=== PATIENT | male | born 1960 | race Caucasian/White ===

== ENCOUNTER 2021-08-07 07:26 | Outpatient (CLI) | payer BC, SELFPAY ==
[2021-08-07 07:49] LABS: Basophils Absolute Auto 0.1 K/mm3 (0.0-0.1); Basophils Percent Auto 1.4 % (0.2-1.2); Eosinophils Absolute Auto 0.1 K/mm3 (0-0.3); Eosinophils Percent Auto 3.1 % (0-4.4); Hematocrit 43.9 % (42.0-52.0); Hemoglobin 14.7 g/dL (14.0-18.0); Immature Granulocyte Absolute 0.01 K/mm3 (0.00-0.031); Immature Granulocyte Percent A 0.3 % (0-0.5); Lymphocytes Absolute Auto 0.56 K/mm3 (0.9-3.2); Lymphocytes Percent Auto 15.8 % (18.3-44.2); Mean Corpuscular HGB Conc 33.5 g/dl (32-36); Mean Corpuscular Hemoglobin 31.7 pg (26-34); Mean Corpuscular Volume 94.8 fl (80-100); Mean Platelet Volume 9.9 fl (7.4-10.4); Monocytes Absolute Auto 0.5 K/mm3 (0.1-0.6); Monocytes Percent Auto 14.4 % (2.6-8.5); Neutrophils Absolute Auto 2.3 K/mm3 (1.3-6.7); Platelet Count Result 215 k/mm3 (150-375); Red Blood Count 4.63 M/mm3 (4.6-6.20); Red Cell Distribution Width 12.9 % (11.5-14.5); White Blood Count 3.5 K/mm3 (4.5-10.0)
== END 2021-08-07 07:27 | disposition home or self-care (01) ==
LOC: ANHLAB 07:28
PROVIDERS: PCP Internal Medicine; Visit Provider Internal Medicine
DX: R79.89 Other specified abnormal findings of blood chemistry (principal)
CPT/HCPCS: 36415; 85025

== ENCOUNTER 2024-07-15 16:24 | Emergency (ER) | payer OTHER, SELFPAY ==
[2024-07-15] VITALS (9 sets, daily range): BP systolic 126–152; BP diastolic 73–87; PULSE 68–81; RESP 16–22; TEMP 36.6; O2SAT 88–100
--- NOTE | ~2024-07-15 | XR_ITS ---
EXAMINATION: XR chest 2V DATE: 07/15/2024 16:42 INDICATION: Chest pain. TECHNIQUE: Frontal and lateral views of the chest were obtained on 3 radiographs. COMPARISON: None. FINDINGS: There are lucencies and diffuse interstitial opacities in the lungs with architectural dist ortion. There is mild scarring at right lung apex. No pleural effusion or pneumothorax. Cardiomegaly is noted. IMPRESSION: 1. Emphysema. 2. Interstitial opacities in the lungs, consistent with mild pulmonary edema and/or chronic lung dise ase. 3. Cardiomegaly. Reviewed, dictated and finalized at location A. L [facility]ONDER IMPRESSION: 1. Emphysema. 2. Interstitial opacities in the lungs, consistent with mild pulmonary edema an d/or chronic lung disease. 3. Cardiomegaly.
--- NOTE | 2024-07-15 16:26 | ECG_ITS ---
Test Date: 2024-07-15 16:31:33 Measurements Intervals [place] Rate: 73 P: 93 SC: 195 QRS: 76 QRSD: 91 T: 94 QT: 380 QTc: 419 Interpretive Statements SINUS RHYTHM LEFT ATRIAL ENLARGEMENT [ INCOMPLETE RIGHT BUNDLE BRANCH BLOCK LEFT VENTRICULAR HYPERTROPHY MINIMAL Q WAVES- LATERAL LEADS T WAVE ABNORMALITY IN ANTERIOR LEADS- CONSIDER ISCHEMIA BASELINE ARTIFACT- I, II, III, AVR, AVL, AVF, V1-V6 ABNORMAL ECG No previous ECG available for comparison Electronically Signed On 07-15-2024 16:41:13 [employer] by Carl Rosa D.O.
--- NOTE | 2024-07-15 16:36 | ED_ITS ---
HPI - Chest Pain General Chief Complaint: Chest Pain <Britney Marsh PA-C - Last Filed: 07/15/24 16:51> Stated Complaint: chest pain <Britney Marsh PA-C - Last Filed: 07/15/24 16:51> Time Seen by Provider: 07/15/24 23:12 <Britney Marsh PA-C - Last Filed: 07/15/24 16:51> Focused HPI: 64-year-old male with history of hypertension presents to the emergency department with with a bedside for intermittent chest pain for the past 3 days. Patient states the chest pain is located in his anterior chest wall and is not radiating. He cannot identify any aggravating or alleviating factors. He states the pain lasts for few seconds at a time and then self resolves. He is unable to describe the pain. He reports intermittent shortness of breath and a cough that is unchanged from his baseline. Admits to smoking half pack per day for several years. Denies hemoptysis, fever, abdominal pain, lower extremity edema, history of VTE, recent surgeries or hospitalizations. GENERAL: Well-appearing, well-nourished, and in no acute distress. HEAD: Normocephalic, atraumatic. CHEST: Clear to auscultation. ?No respiratory distress. HEART: Regular rate and rhythm.? NEURO: ?Alert and oriented x3. Patient screened in triage and initial orders placed.? ?Additional care and disposition to be based upon?diagnostic testing and treatment. <Britney Marsh PA-C - Last Filed: 07/15/24 16:51> History of Present Illness HPI narrative: Agree with the HPI as described above. <Handy Smith MD - Last Filed: 07/16/24 01:48> Related Data Home Medications: Home Medications ?Medication ?Instructions ?Recorded ?Confirmed ?Last Taken ?Type loratadine 10 mg tablet (Claritin) 10 mg PO DAILY PRN 02/28/23 07/15/24 Unknown History <Britney Marsh PA-C - Last Filed: 07/15/24 16:51> Allergies/Adverse Reactions: Allergies Allergy/AdvReac Type Severity Reaction Status Date / Time No Known Allergies Allergy Unverified 07/15/24 15:02 <Britney Marsh PA-C - Last Filed: 07/15/24 16:51> Review of Systems 2 Review of Systems: As reviewed above in HPI <Handy Smith MD - Last Filed: 07/16/24 01:48> [facility] Surgical History Surgical History: Surgical History Hx of cholecystectomy <Britney Marsh PA-C - Last Filed: 07/15/24 16:51> Family History Family History: Family History Mother Breast cancer Ovarian cancer <Britney Marsh PA-C - Last Filed: 07/15/24 16:51> Social History Social History: Social History Smoking status: Current some day smoker Tobacco type: cigarettes Alcohol intake: current Substance use: never Substance use type: does not use Lack of Transportation: No Lack of Food: Never True Current Housing: I Have Housing Concerned About Future Housing: No Difficulty Paying Gas/Electric Bills: No Difficulty Paying for Meds: No Currently Unemployed: No Difficulty w/ Childcare or Family Care: No Living arrangements: with family Occupation/Education: occupation Gender identity (if verbalized by the patient): Male Sexual Orientation (if Verbalized by the Patient): Straight or Heterosexual Agree to blood products: Yes <Britney Marsh PA-C - Last Filed: 07/15/24 16:51> Exam 2 Narrative: GENERAL: [Well-appearing, well-nourished, and in no acute distress.] HEAD: [Normocephalic, atraumatic.] EYES: [PERRLA and EOMI.] ENT: Nares clear, no rhinorrhea or epistaxis. Mucous membranes moist. NECK: Supple. CHEST: Pectus excavatum, clear breath sounds, no wheezing, rhonchi, rales. No tenderness with palpation. HEART: [Regular rate and rhythm]. No murmur heard. [Normal peripheral pulses.] ABDOMEN: [Soft, nondistended], [nontender], [No rigidity or guarding] EXTREMITIES: Normal range of motion. [No edema.] SKIN: Warm, dry, no rash. NEURO: [No focal deficits]. Alert and oriented [x3.] PSYCH: [Normal mood and affect.] <Handy Smith MD - Last Filed: 07/16/24 01:48> Course Vital Signs Vital signs: Vital Signs Temperature 36.6 C 07/15/24 16:33 Pulse Rate 73 07/15/24 16:33 Respiratory Rate 18 07/15/24 16:33 Blood Pressure 152/87 H 07/15/24 16:33 Pulse Oximetry 97 07/15/24 16:33 Oxygen Delivery Room Air 07/15/24 16:33 Temperature 36.6 C 07/15/24 16:33 Pulse Rate 74 07/16/24 01:31 Respiratory Rate 22 H 07/16/24 01:31 Blood Pressure 118/101 H 07/16/24 01:31 Pulse Oximetry 93 07/16/24 01:31 Oxygen Delivery Room Air 07/15/24 16:33 <Britney Marsh PA-C - Last Filed: 07/15/24 16:51> Vital Signs Temperature 36.6 C 07/15/24 16:33 Pulse Rate 73 07/15/24 16:33 Respiratory Rate 18 07/15/24 16:33 Blood Pressure 152/87 H 07/15/24 16:33 Pulse Oximetry 97 07/15/24 16:33 Oxygen Delivery Room Air 07/15/24 16:33 Temperature 36.6 C 07/15/24 16:33 Pulse Rate 74 07/16/24 01:31 Respiratory Rate 22 H 07/16/24 01:31 Blood Pressure 118/101 H 07/16/24 01:31 Pulse Oximetry 93 07/16/24 01:31 Oxygen Delivery Room Air 07/15/24 16:33 <Handy Smith MD - Last Filed: 07/16/24 01:48> MDM - Chest Pain MDM Narrative Medical decision making narrative: 64-year-old male with history of COPD and emphysema and still smoking half a pack per day presenting to the emergency room with intermittent chest pain for last 3 days. Pain is not exacerbated or alleviated by any factors, no provoking factors that he can think of. He went to his primary care doctor today with regular checkup in mention the chest pain and they sent him to the ER for evaluation. Patient has no history of cardiac disease or coronary disease. Just high blood pressure and COPD. Takes antihypertensives, no history of malignancy or cancer. No thigh pain or leg calf cramping. No history of DVT or PE. No injuries or trauma. No fever, chills, flu-like symptoms. Differential diagnosis includes musculoskeletal chest pain, costochondritis, angina, less likely ACS given his lack of risk factors. No suspicion presently based on exam for congestive heart failure or thromboembolic event however we will evaluate with serial troponins, D-dimer, BNP, EKG, chest x-ray, CBC, CMP and lipase. Viral panel also obtained. Patient is present not any pain. Workup shows no leukocytosis or anemia. Normal platelet count. Coag studies within normal limits. Chemistry panel shows some minor hyperkalemia 5.2 but no significant derangements. Normal creatinine and renal function. Normal glucose, normal LFTs, negative troponin patient initial. Repeat pending. Negative lipase. Mildly elevated BNP. Chest x-ray shows emphysema and some interstitial lung opacities consistent with chronic lung disease. Cardiomegaly is also seen. No pneumothorax or pneumonia. Repeat troponin is negative, D-dimer is 0.53, negative per YEARS criteria and age-adjusted d-dimer cutoff and can safely exclude pulmonary embolism. EKG shows sinus rhythm, poor baseline artifact but there is no signs of ST segment elevations, depressions or inversions. Some signs of LVH with tall QRS complexes the lateral leads. Pending repeat troponin and D-dimer. His vital signs on repeat assessment are stable. No tachycardia, fever or hypoxia. Patient overall is well-appearing and can likely be safely discharged home especially with his low heart score of 3 and have him follow-up with regular PCP. Family and patient were comfortable with this plan of care. <Handy Smith MD - Last Filed: 07/16/24 01:48> Medical Records Data Attestation: I reviewed the patient's medical records. <Handy Smith MD - Last Filed: 07/16/24 01:48> Lab Data Attestation: I reviewed the patient's lab results. <Handy Smith MD - Last Filed: 07/16/24 01:48> Result diagrams: 07/15/24 16:59 07/15/24 16:59 <Britney Marsh PA-C - Last Filed: 07/15/24 16:51> Labs: Lab Results 07/15/24 07/15/24 07/16/24 Range/Units 16:59 23:48 00:50 WBC 6.9 (4.5-10.0) K/mm3 RBC 4.81 (4.6-6.20) M/mm3 Hgb 15.2 (14.0-18.0) g/dL Hct 45.5 (42.0-52.0) % MCV 94.6 (80-100) fl MCH 31.6 (26-34) pg MCHC 33.4 (32-36) g/dl RDW 12.6 (11.5-14.5) % Plt Count 213 (150-375) k/mm3 MPV 10.2 (7.4-10.4) fl Immature Gran % (Auto) 0.3 (0-0.5) % Neut % (Auto) 77.0 H (45.5-73.1) % Lymph % (Auto) 6.9 L (18.3-44.2) % [place] % (Auto) 12.5 H (2.6-8.5) % Eos % (Auto) 2.3 (0-4.4) % Baso % (Auto) 1.0 (0.2-1.2) % Lymph # (Auto) 0.47 L (0.9-3.2) K/mm3 [place] # (Auto) 0.9 H (0.1-0.6) K/mm3 Eos # (Auto) 0.2 (0-0.3) K/mm3 Baso # (Auto) 0.1 (0.0-0.1) K/mm3 Abs Immat Gran (auto) 0.02 (0.00-0.031) K/mm3 Absolute Neuts (auto) 5.3 (1.3-6.7) K/mm3 Absolute Nucleated RBC 0.000 (0.0-0.012) K/mm3 Nucleated RBC % 0.0 (0.0-0.2) % PT 12.7 (11.1-14.7) Seconds INR 0.9 APTT 25.8 (22.3-36.8) Seconds D-Dimer 0.53 H (<0.48) ug/mL Sodium 134 L (137-145) mmol/L Potassium 5.2 H (3.4-5.0) mmol/L Chloride 96 L (98-107) mmol/L Carbon Dioxide 30 (22-30) mmol/L Anion Gap 8 (4-12) mmol/L BUN 10 (9-20) mg/dL Creatinine 0.59 L (0.7-1.3) mg/dL Estim Creat Clear Calc 114 ml/min Estimated GFR > 60 (59 - ) Glucose 91 (65-110) mg/dL Calcium 9.2 (8.4-10.2) mg/dL Total Bilirubin 1.1 (0.2-1.3) mg/dL AST 27 (17-59) U/L ALT 16 (6-50) U/L Alkaline Phosphatase 93 (38-126) U/L Troponin I < 0.012 < 0.012 (0.000-0.034) ng/mL NT-Pro-B Natriuret Pep 309 H (19.9-100) pg/mL Total Protein 8.0 (6.3-8.2) g/dL Albumin 4.4 (3.5-5.1) g/dL Lipase 16 L (23-300) U/L <Britney Marsh PA-C - Last Filed: 07/15/24 16:51> Lab Results 07/15/24 07/15/24 07/16/24 Range/Units 16:59 23:48 00:50 WBC 6.9 (4.5-10.0) K/mm3 RBC 4.81 (4.6-6.20) M/mm3 Hgb 15.2 (14.0-18.0) g/dL Hct 45.5 (42.0-52.0) % MCV 94.6 (80-100) fl MCH 31.6 (26-34) pg MCHC 33.4 (32-36) g/dl RDW 12.6 (11.5-14.5) % Plt Count 213 (150-375) k/mm3 MPV 10.2 (7.4-10.4) fl Immature Gran % (Auto) 0.3 (0-0.5) % Neut % (Auto) 77.0 H (45.5-73.1) % Lymph % (Auto) 6.9 L (18.3-44.2) % [place] % (Auto) 12.5 H (2.6-8.5) % Eos % (Auto) 2.3 (0-4.4) % Baso % (Auto) 1.0 (0.2-1.2) % Lymph # (Auto) 0.47 L (0.9-3.2) K/mm3 [place] # (Auto) 0.9 H (0.1-0.6) K/mm3 Eos # (Auto) 0.2 (0-0.3) K/mm3 Baso # (Auto) 0.1 (0.0-0.1) K/mm3 Abs Immat Gran (auto) 0.02 (0.00-0.031) K/mm3 Absolute Neuts (auto) 5.3 (1.3-6.7) K/mm3 Absolute Nucleated RBC 0.000 (0.0-0.012) K/mm3 Nucleated RBC % 0.0 (0.0-0.2) % PT 12.7 (11.1-14.7) Seconds INR 0.9 APTT 25.8 (22.3-36.8) Seconds D-Dimer 0.53 H (<0.48) ug/mL Sodium 134 L (137-145) mmol/L Potassium 5.2 H (3.4-5.0) mmol/L Chloride 96 L (98-107) mmol/L Carbon Dioxide 30 (22-30) mmol/L Anion Gap 8 (4-12) mmol/L BUN 10 (9-20) mg/dL Creatinine 0.59 L (0.7-1.3) mg/dL Estim Creat Clear Calc 114 ml/min Estimated GFR > 60 (59 - ) Glucose 91 (65-110) mg/dL Calcium 9.2 (8.4-10.2) mg/dL Total Bilirubin 1.1 (0.2-1.3) mg/dL AST 27 (17-59) U/L ALT 16 (6-50) U/L Alkaline Phosphatase 93 (38-126) U/L Troponin I < 0.012 < 0.012 (0.000-0.034) ng/mL NT-Pro-B Natriuret Pep 309 H (19.9-100) pg/mL Total Protein 8.0 (6.3-8.2) g/dL Albumin 4.4 (3.5-5.1) g/dL Lipase 16 L (23-300) U/L <Handy Smith MD - Last Filed: 07/16/24 01:48> Imaging Data Attestation: I personally reviewed and interpreted this imaging study as follows: < Handy Smith MD - Last Filed: 07/16/24 01:48> My impression: Impressions Chest X-Ray 07/15/24 16:43 IMPRESSION: 1. Emphysema. 2. Interstitial opacities in the lungs, consistent with mild pulmonary edema and/or chronic lung disease. 3. Cardiomegaly. <Handy Smith MD - Last Filed: 07/16/24 01:48> ECG Data EKG #1: Attestation: I personally reviewed and interpreted this ECG as follows: < Handy Smith MD - Last Filed: 07/16/24 01:48> ECG completion date: 07/16/24 <Handy Smith MD - Last Filed: 07/16/24 01:48> ECG completion time: 16:31 <Handy Smith MD - Last Filed: 07/16/24 01:48> Prior ECG tracings: not available for review <Handy Smith MD - Last Filed: 07/16/24 01:48> Interpretation: Poor baseline artifact but overall normal sinus rhythm, regular rate, regular rhythm and axis. LVH is seen, no ST segment elevations, depressions or inversions. No signs of acute ischemic evidence. No previous EKG for comparison. QTC 419, QR interval 91, DC interval 195. Overall final interpretation sinus rhythm. <Handy Smith MD - Last Filed: 07/16/24 01:48> Discharge Plan Discharge Clinical Impression: Atypical chest pain, Musculoskeletal chest pain <Britney Marsh PA-C - Last Filed: 07/15/24 16:51> Patient Disposition: Home, Self-Care <Britney Marsh PA-C - Last Filed: 07/15/24 16:51> Condition: Stable <Britney Marsh PA-C - Last Filed: 07/15/24 16:51> Instructions: Antibiotic Form, Chest Pain (ED), Costochondritis (ED) <Britney Marsh PA-C - Last Filed: 07/15/24 16:51> Additional Instructions: Your cardiac workup was very reassuring here today. No troponin elevations or any ongoing cardiac damage seen on your EKG or lab work. No blood clot concerns. Call your regular doctor for close follow-up, return if you have any persistent, evolving or worsening symptoms. Take Tylenol and ibuprofen for any aches or pains. <Britney Marsh PA-C - Last Filed: 07/15/24 16:51> Patient Language: Italian <Britney Marsh PA-C - Last Filed: 07/15/24 16:51> Prescriptions: No Action loratadine [Claritin] 10 mg tablet 10 mg PO DAILY PRN losartan 100 mg tablet 100 mg PO DAILY Qty: 90 1RF atenolol 50 mg tablet 50 mg PO QPM Qty: 30 0RF Rx Instructions: LAST REFILL UNTIL SEEN atenolol 25 mg tablet 25 mg PO QAM Qty: 30 0RF Rx Instructions: NEEDS APPOINTMENT FOR FURTHER REFILLS <Britney Marsh PA-C - Last Filed: 07/15/24 16:51> Follow-up/Referrals: Jack Lima DO [Primary Care Provider] - 1 Week (Repeat follow-up after ER visit) <Britney Marsh PA-C - Last Filed: 07/15/24 16:51> Time of Disposition: 01:47 <Britney Marsh PA-C - Last Filed: 07/15/24 16:51> 01:47 <Handy Smith MD - Last Filed: 07/16/24 01:48> Quality HEART score for chest pain patients History: slightly suspicious <Handy Smith MD - Last Filed: 07/16/24 01:48> ECG: normal <Handy Smith MD - Last Filed: 07/16/24 01:48> Age: > or = to 65 years <Handy Smith MD - Last Filed: 07/16/24 01:48> Risk factors: 1 or 2 risk factors <Handy Smith MD - Last Filed: 07/16/24 01:48> Troponin: < or = to 1x normal limit <Handy Smith MD - Last Filed: 07/16/24 01:48> Heart score: 3 <Handy Smith MD - Last Filed: 07/16/24 01:48>
[2024-07-15 17:06] LABS: Basophils Absolute Auto 0.1 K/mm3 (0.0-0.1); Eosinophils Absolute Auto 0.2 K/mm3 (0-0.3); Eosinophils Percent Auto 2.3 % (0-4.4); Hematocrit 45.5 % (42.0-52.0); Hemoglobin 15.2 g/dL (14.0-18.0); Immature Granulocyte Absolute 0.02 K/mm3 (0.00-0.031); Immature Granulocyte Percent A 0.3 % (0-0.5); Lymphocytes Absolute Auto 0.47 K/mm3 (0.9-3.2); Lymphocytes Percent Auto 6.9 % (18.3-44.2); Mean Corpuscular HGB Conc 33.4 g/dl (32-36); Mean Corpuscular Hemoglobin 31.6 pg (26-34); Mean Corpuscular Volume 94.6 fl (80-100); Mean Platelet Volume 10.2 fl (7.4-10.4); Monocytes Absolute Auto 0.9 K/mm3 (0.1-0.6); Monocytes Percent Auto 12.5 % (2.6-8.5); Neutrophils Absolute Auto 5.3 K/mm3 (1.3-6.7); Platelet Count Result 213 k/mm3 (150-375); Red Blood Count 4.81 M/mm3 (4.6-6.20); Red Cell Distribution Width 12.6 % (11.5-14.5); White Blood Count 6.9 K/mm3 (4.5-10.0)
[2024-07-15 17:18] LABS: INR 0.9; Partial Thromboplastin Time 25.8 Seconds (22.3-36.8); Prothrombin Time 12.7 Seconds (11.1-14.7)
[2024-07-15 17:25] LABS: Alanine Aminotransferase 16 U/L (6-50); Albumin Level 4.4 g/dL (3.5-5.1); Alkaline Phosphatase 93 U/L (38-126); Anion Gap 8 mmol/L (4-12); Aspartate Amino Transferase 27 U/L (17-59); Bilirubin,Total 1.1 mg/dL (0.2-1.3); Blood Urea Nitrogen 10 mg/dL (9-20); Calcium 9.2 mg/dL (8.4-10.2); Carbon Dioxide 30 mmol/L (22-30); Chloride 96 mmol/L (98-107); Estimated CRCL calculation 114 ml/min; Estimated Glomerular Filt Rate > 60; Glucose 91 mg/dL (65-110); Lipase 16 U/L (23-300); Potassium 5.2 mmol/L (3.4-5.0); Sodium 134 mmol/L (137-145)
[2024-07-15 17:26] LABS: NT Pro B Type Natriuretic Pept 309 pg/mL (19.9-100)
[2024-07-15 17:29] LABS: Troponin I < 0.012 ng/mL (0.000-0.034)
--- OUTSIDE RECORDS SUMMARY | 2024-07-15 18:37 | XMS_ITS | Referral Summary ---
Author Organization [facility] Address [address] [place] [address] Care Team Providers Care Oim Consultant Name Role Phone Jack Lima DO Primary Care Provider +1- [phone] Encounters Date Type Department Care Team Description 07/11/2024 Telephone [facility] Neuro Sleep [address] [facility] 6th [address] [place] [address] Abbey Garcia RPSGT 05/30/2024 Telephone [facility] Scheduling [address] [place] [address] Lashonda Wren 05/27/2024 Telephone [facility] Neuro Sleep [address] [facility] 6[address] [place] [address] Marianne Fink RN DME order 05/24/2024 7:30 PM JEWEL HOLE ROUGH OPENER Procedure visit [facility] Neuro Sleep [address] [facility] 6[address] [place] [address] DULCE (obstructive sleep apnea) (Primary Dx) 05/03/2024 9:00 AM JEWEL HOLE ROUGH OPENER Office Visit [facility] Neuro Sleep [address] [facility] [address] [place] [address] Alberto Becerra MD PhD Suspected sleep apnea (Primary Dx); Snoring; Sleep disturbance; Hypersomnia 04/15/2024 Orders Only [facility] Pulmonary [address] [facility] 8th [place] [address] [place] [id number] Skyler Sanderson MD Chronic obstructive pulmonary disease, unspecified COPD type (HCC) (Primary Dx); Lung nodule seen on imaging study from Last 3 Months Allergies No known active allergies Medications cyanocobalamin (Vitamin B-12) 1,000 mcg tabletIndicatio ns:Prevention of Vitamin B12 Deficiency Take 1 tablet (1,000 mcg total) by mouth daily Active atenoloL (TENORMIN) 50 mg tablet Take 1 tablet (50 mg total) by mouth nightly 4 Active atenoloL (TENORMIN) 25 mg tablet Take 1 tablet (25 mg total) by mouth every morning 4 Active losartan (COZAAR) 100 mg tablet Take 1 tablet (100 mg total) by mouth daily Active umeclidinium-vi lanteroL (ANORO ELLIPTA) 62.5-25 mcg/actuation blister with device Inhale 1 puff daily 1 each 6 4 Active albuterol HFA (ProAir HFA) 90 mcg/actuation inhaler Inhale 2 puffs 4 (four) times a day as needed for wheezing or shortness of breath 8.5 g 5 4 Active Active Problems Problem Noted Date Diagnosed Date Dyspnea on exertion 03/27/2024 Suspected sleep apnea 03/27/2024 Chronic obstructive pulmonary disease 03/27/2024 Pectus excavatum 03/27/2024 Tobacco use disorder 03/27/2024 Diverticulitis of colon 11/20/2015 Immunizations Immunization Administration Dates Next Due Influenza, Trivalent, Cell C ulture-based MDCK, Preservative Free, Antibiotic Free, Intramuscular 03/27/2024 Pneumococcal Conjugate Pcv20 03/27/2024 Social History Tobacco Use Types Packs/Day Years Used Date Smoking Tobacco: Some Days Cigarettes Tobacco Cessation:Ready to Q uit: Not Asked; Counseling Given: Not Answered AUDIT-C Answer Date Recorded Q1: How often do you have a drink containing alc ohol? 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 file Not on file Last Filed Vital Signs Vital Sign Reading Time Taken Comments Blood Pressure 156/92 05/24/2024 7:42 PM JEWEL HOLE ROUGH OPENER Pulse 51 05/24/2024 7:42 PM JEWEL HOLE ROUGH OPENER Temperature 36.7 C (98.1 F) 05/24/2024 7:42 PM JEWEL HOLE ROUGH OPENER Respiratory Rate 18 03/27/2024 1:54 PM JEWEL HOLE ROUGH OPENER Oxygen Saturation 91% 05/24/2024 7:42 PM JEWEL HOLE ROUGH OPENER Inhaled Oxygen Concentration - - Weight 75.1 kg (165 lb 8 oz) 05/24/2024 7:42 PM JEWEL HOLE ROUGH OPENER Height 182.9 cm (6') 05/24/2024 7:42 PM JEWEL HOLE ROUGH OPENER Body Mass Index 22.45 05/24/2024 7:42 PM JEWEL HOLE ROUGH OPENER Plan of Treatment Not on file Procedures Procedure Name Priority Date/Time Associated Diagnosis Comments PSG (COMPLEX) Routine 05/24/2024 10:00 PM JEWEL HOLE ROUGH OPENER DULCE (obstructive sleep apnea) HEPATITIS PANEL, ACUTE Routine 11/30/2021 9:11 AM CDT Lymphopenia COLONOSCOPY 04/30/2021 4:42 PM JEWEL HOLE ROUGH OPENER from Last 3 Months or Most Recently Relevant to Health Maintenance Results * PSG (COMPLEX) (05/24/2024 10:00 PM JEWEL HOLE ROUGH OPENER) Narrative Nohemy Vizcarra MD PhD - 05/24/2024 10:00 PM JEWEL HOLE ROUGH OPENER Nohemy Vizcarra MD PhD 05/27/2024 2:31 PM PSG-Sleep Provider Use Only Date/Time: 05/24/2024 10:00 PM Performed by: Nohemy Vizcarra MD PhD Authorized by: Alberto Becerra MD PhD us Alberto Becerra MD PhD [facility] BLES Final Result * Hepatitis panel, acute (11/30/2021 9:11 AM CDT) Hep A IgM Nonreactive Nonreactive [facility] Comment: Interpretive Data: If Hep A IgM Ab is reported as Equivocal, a new sample should be drawn in two weeks for testing. Current interpretive data was last revised on 19. Hep B core IgM Nonreactive Nonreactive [facility] Comment: Interpretive Data If HepB Core IgM Ab is reported as Equivocal, a new sample should be drawn in two weeks for testing. Current interpretive data was last revised on 19. Hep C Ab Nonreactive Nonreactive [facility] Comment:Antibodies to HCV no t detected. Does NOT exclude the possibility of recent exposure to HCV. HepBsAg Nonreactive Nonreactive [facility] Blood 11/30/2021 9:11 AM CDT 11/30/2021 11:21 AM CDT Sharda Vilchis MD LAB MICROBIOLOGY - GENERAL O RDERABLES Edited Result - Final [facility] Department [place] [address] * COLONOSCOPY (04/30/2021 4:42 PM JEWEL HOLE ROUGH OPENER) Anatomical Region Laterality Modality Other Narrative Procedure Note Bronson Smith MD PhD - 04/30/2021 4:42 PM CST [facility] ENDOSCOPY [facility] Patient Name: Colin Evans Procedure Date: 04/30/2021 4:42 PM Date of : 1960 Admit Type: Outpatient Age: 61 Gender: Male Attending MD: Bronson Smith MD,PHD Room: [facility] ENDOSCOPY ROOM 8 Note Status: Finalized Procedure: Colonoscopy Indications: Screening for colorectal malignant neoplasm - Prior left colectomy (anastamosis not seen) Referring MD: Jack Lima DO Providers: Bronson Smith MD, PHD Medicines: Monitored Anesthesia Care Complications: No immediate complications. Estimated Blood Loss: Estimated blood loss was minimal. Procedure: Pre-Anesthesia Assessment: - Prior to the procedure, a History and Physicalwas performed, and patient medications, allergies and sensitivities were reviewed. The patient'stolerance of previous anesthesia was reviewed. - The risks and benefits of the procedure and the sedation options and risks were discussed with the patient. All questions were answered and informed consent was obtained. - After reviewing the risks and benefits, thepatient was deemed in satisfactory condition to undergo the procedure. - Immediately prior to administration ofmedications, the patient was re-assessed for adequacy to receive sedatives. The benefits, risks and alternatives of theprocedure and sedation were discussed and informed consentwas obtained. All questions were answered. Please referto the signed informed consent document in the medical record. The scope was passed under direct vision.The [id number] endoscope was introduced through the anus and advanced to the cecum, identified by appendiceal orifice and ileocecal valve. The colonoscopy was performed with ease. The patient tolerated the procedure well. The quality of thebowel preparation was evaluated using the BBPS (BostonBowel Preparation Scale) with scores of: Right Colon = 2 (minor amount of residual staining, small fragmentsof stool and/or opaque liquid, but mucosa seen well), Transverse Colon = 2 (minor amount of residual staining, small fragments of stool and/or opaque liquid, but mucosa seen well) and Left Colon = 2 (minor amount of residual staining, small fragmentsof stool and/or opaque liquid, but mucosa seen well).The total BBPS score equals 6. The quality of the bowel preparation was good. The bowel preparation usedwas GoLYTELY via split dose instruction. The quality of the bowel preparation was good. Bowel prep was administered using a split dose. Findings: A few small and large-mouthed diverticula were found in thedescending colon. Two sessile polyps were found in the descending colon. The polypswere 2 to 4 mm in size. These polyps were removed with a jumbo cold forceps. Resection and retrieval were complete. Internal hemorrhoids were found during retroflexion. Impression: - Diverticulosis in the descending colon. - Two 2 to 4 mm polyps in the descending colon, removed with a jumbo cold forceps. Resected and retrieved. - Internal hemorrhoids. Recommendation: - Await pathology results. - A polyp or polyps were removed during your colonoscopy today. After the pathology result ofthe polyp(s) is reviewed, the doctor who performedyour colonoscopy will recommend follow-up colonoscopy to you based on current guidelines by gastroenterology societies: - If only small hyperplastic polyps from the rectumor sigmoid were removed, repeat the colonoscopy in 10 years. - If 1 or 2 polyps less than 1 cm in size are adenomas, repeat the colonoscopy in 5 years. - If 3 or more polyps are adenomas, repeat the colonoscopy in 3 years. - If there are 10 or more adenomas, repeat the colonoscopy in 1 year. - If any polyp is 10 mm or greater in size, has villous histology or high grade dysplasia,repeat the colonoscopy in 3 years. - If a polyp greater than 2 cm was removed with a piecemeal technique, repeat the colonoscopy in 6 months to be certain that there is no residualpolyp. - Sessile serrated polyps are treated like adenomas for surveillance purposes. Electronically signed by Bronson Smith MD PHD Bronson Smith MD, PHD 04/30/2021 5:09:29 PM . Number of Addenda: 0 Note Initiated On: 04/30/2021 4:42 PM Recognized by the [place] [employer] for promoting quality in endoscopy Bronson Smith MD PhD ENDOSCOPY PROCEDURES F inal Result from Last 3 Months or Most Recently Relevant to Health Maintenance Insurance [facility] HMO/PPO Address: [facility] [address] [place] [address] [place] [facility] HMO/PPO Address: [address] [address] Advance Directives For more information, please contact: [phone] * Full Code (Latest Code Status on File) Date Activated Date Inactivated Comments 04/30/2021 4:18 PM 04/30/2021 9:51 PM Care Teams Oim Consultant Relationship Specialty Start Date End Date Jack Lima DO [facility] [address] [place] [id number] PCP - General Internal Medicine 03/27/24
--- OUTSIDE RECORDS SUMMARY | 2024-07-15 18:37 | XMS_ITS | Encounter Summary ---
Author Organization [facility] Address [address] [place] [address] Phone Care Team Providers Care Respite Provider Name Role Phone Jack Lima DO Primary Care Provider +1- [phone] Encounter Details Date Type Department Care Team (Late st Contact Info) Description 07/11/2024 Telephone [facility] Neuro Sleep [address] [facility] 6th [address] [place] [address] Abbey Garcia RPSGT Social History Tobacco Use Types Packs/Day Years Used Date Smoking Tobacco: Some Days Cigarettes AUDIT-C Answer Date Recorded Q1: How often do you have a drink containing alc ohol? 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 LVM. My chart message sent. LE GAME ENGINEER documented in this encounter Plan of Treatment Not on file documented as of this encounter Visit Diagnoses Not on filedocumented in this encounter Care Teams Respite Provider Relationship Specialty Start Date End Date Jack Lima DO [facility] [address] [place] [id number] PCP - General Internal Medicine 03/27/24 documented as of this encounter
--- OUTSIDE RECORDS SUMMARY | 2024-07-15 18:37 | XMS_ITS | Clinical Summary ---
Author Organization [facility] Address [address] [place] [address] Care Team Providers Care Supply Assistant Name Role Phone Jack Lima DO Primary Care Provider +1- [phone] Allergies No known active allergies Medications cyanocobalamin [...] use disorder 03/27/2024 Diverticulitis of colon 11/20/2015 Encounters Date Type Department Care Team Description 07/11/2024 Telephone [facility] Neuro Sleep [address] [facility] 6th Floor [address] [place] [address] Abbey Garcia ABRAHAMLORRAINE 05/30/2024 Telephone [facility] Scheduling [address] [place], [place] [id number] Lashonda Wren 05/27/2024 Telephone [facility] Neuro Sleep [address] [facility] 6th [address] [place] [address] Marianne Fink RN DME order 05/24/2024 7:30 PM BLASTING HELPER Procedure visit [facility] Neuro Sleep [address] [facility] 6th [address] [place] [phone] DULCE (obstructive sleep apnea) (Primary Dx) 05/03/2024 9:00 AM BLASTING HELPER Office Visit [facility] Neuro Sleep [address] [facility] 6th [address] [place] [address] Alberto Becerra MD PhD Suspected sleep apnea (Primary Dx); Snoring; Sleep disturbance; Hypersomnia 04/15/2024 Orders Only [facility] Pulmonary [address] [facility] 8th [place] [address] [place] [address] Skyler Sanderson MD Chronic obstructive pulmonary disease, unspecified COPD type (HCC) (Primary Dx); Lung nodule seen on imaging study from Last 3 Months Immunizations Immunization Administration Dates Next Due Influenza, Trivalent, Cell C ulture-based MDCK, Preservative Free, Antibiotic Free, Intramuscular 03/27/2024 Pneumococcal Conjugate Pcv20 03/27/2024 Surgical History Surgery Date Site/Laterality Comments COLECTOMY 05/22/2013 - 05/21/2014 Medical History Medical History Date Comments COPD (chronic obstructive pulmonary disease) (HC C) HTN (hypertension) Diverticulitis Family History Medical History Relation Name Comments Breast cancer Mother Cancer Mother Family history of malignant neoplasm - (Added by TW Conv) Ovarian cancer Mother Stomach cancer Mother Lung cancer Other uncle Breast cancer Paternal Grandfather Relation Name Status Comments Mother Other uncle Paternal Grandfather Social History Tobacco Use Types Packs/Day Years [...] on file Legal Sex Male 8:21 AM BLASTING HELPER Gender Identity Not on file Sexual Orientation Not on file 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 Not on file Obstetrics History Last Filed Vital Signs Vital Sign Reading Time Taken Comments Blood Pressure 156/92 05/24/2024 7:42 PM BLASTING HELPER Pulse 51 05/24/2024 7:42 PM BLASTING HELPER Temperature 36.7 C (98.1 F) 05/24/2024 7:42 PM BLASTING HELPER Respiratory Rate 18 03/27/2024 1:54 PM BLASTING HELPER Oxygen Saturation 91% 05/24/2024 7:42 PM BLASTING HELPER Inhaled Oxygen Concentration - - Weight 75.1 kg (165 lb 8 oz) 05/24/2024 7:42 PM BLASTING HELPER Height 182.9 cm (6') 05/24/2024 7:42 PM BLASTING HELPER Body Mass Index 22.45 05/24/2024 7:42 PM BLASTING HELPER Plan of Treatment Health Maintenance Due Date Last Done Comments Depression Screening 1960 Prostate Cancer Screening-PSA 1960 Hepatitis B Screening 1979 Regular Well Visit/Exam 18-64 1979 Zoster Vaccine (1 of 2) 2011 Covid-19 Vaccine (2023- season) 01/21/202403/2021, 07/02/2020 DTaP/Tdap/Td Vaccine (2 - Td or Tdap) 02/10/2031 Colon Cancer Screening-Colonoscopy 04/30/20312020 Hepatitis C Screening Completed 11/30/2021 Influenza Vaccine Completed 03/27/2024 Pneumococcal vaccine <65 Completed 03/27/2024 Procedures Procedure Name Priority Date/Time Associated Diagnosis Comments PSG (COMPLEX) Routine 05/24/2024 10:00 PM BLASTING HELPER DULCE (obstructive sleep apnea) HEPATITIS PANEL, ACUTE Routine 11/30/2021 9:11 AM CDT Lymphopenia COLONOSCOPY 04/30/2021 4:42 PM BLASTING HELPER from Last 3 Months or Most Recently Relevant to Health Maintenance Results * PSG (COMPLEX) (05/24/2024 10:00 PM BLASTING HELPER) Narrative Nohemy Vizcarra MD PhD - 05/24/2024 10:00 PM BLASTING HELPER Nohemy Vizcarra MD PhD 05/27/2024 2:31 PM PSG-Sleep Provider Use Only Date/Time: 05/24/2024 10:00 PM Performed by: Nohemy Vizcarra MD PhD Authorized by: Alberto Becerra MD PhD us Alberto Becerra MD PhD [facility] ORDER[facility] BLES Final Result * Hepatitis panel, acute (11/30/2021 9:11 AM CDT) Hep A IgM Nonreactive Nonreactive [facility] Comment: Interpretive Data: If Hep A IgM Ab is reported as Equivocal, a new sample should be drawn in two weeks for testing. Current interpretive data was last revised on 19. Hep B core IgM Nonreactive Nonreactive [facility] Comment: Interpretive Data If HepB Core IgM Ab is reported as Equivocal, a new sample should be drawn in two weeks for testing. Current interpretive data was last revised on 19. Hep C Ab Nonreactive Nonreactive [facility] Comment:Antibodies to HCV no t detected. Does NOT exclude the possibility of recent exposure to HCV. HepBsAg Nonreactive Nonreactive [facility] Blood 11/30/2021 9:11 AM CDT 11/30/2021 11:21 AM CDT us Sharda Vilchis MD LAB MICROBIOLOGY - GENERAL O RDERABLES Edited Result - Final [facility] Department [place] [address] * COLONOSCOPY (04/30/2021 4:42 PM BLASTING HELPER) Anatomical Region Laterality Modality Other Narrative Procedure Note Bronson Smith MD PhD - 04/30/2021 4:42 PM CST [facility] ENDOSCOPY [facility] Patient Name: Colin Evans Procedure Date: 04/30/2021 4:42 PM Date of : 1960 Admit Type: Outpatient Age: 61 Gender: Male Attending MD: Bronson Smith MD,PHD Room: [facility] ENDOSCOPY ROOM 8 Note Status: Finalized Procedure: [...] The scope was passed under direct vision.The [id number] endoscope was introduced through the anus and [...] On: 04/30/2021 4:42 PM Recognized by the [place]intestinal Endoscopy for promoting quality in endoscopy Bronson Smith MD PhD ENDOSCOPY PROCEDURES F inal Result from Last 3 Months or Most Recently Relevant to Health Maintenance Insurance [facility] ANTHEM ACCESS CHOICE [facility] Advance Directives For more information, please contact: [phone] * Full Code (Latest Code Status on File) Date Activated Date Inactivated Comments 04/30/2021 4:18 PM 04/30/2021 9:51 PM Care Teams Supply Assistant Relationship Specialty Start Date End Date Jack Lima DO [address] [facility] [place] [address] PCP - General Internal Medicine 03/27/24
--- NOTE | 2024-07-15 22:20 | ECG_ITS ---
Test Date: 2024-07-15 22:20:56 Measurements Intervals [place] Rate: 68 P: 75 MD: 187 QRS: 61 QRSD: 92 T: 81 QT: 391 QTc: 418 Interpretive Statements SINUS RHYTHM POSSIBLE LEFT ATRIAL ENLARGEMENT INCOMPLETE RIGHT BUNDLE BRANCH BLOCK POSSIBLE LEFT VENTRICULAR HYPERTROPHY ST DEVIATION AND MODERATE T-WAVE ABNORMALITY, CONSIDER ANTERIOR ISCHEMIA BASELINE ARTIFACT- I, II, III, AVR, AVL, AVF, V5 ABNORMAL ECG Compared to ECG 07/15/2024 16:31:33 Possible ischemia still present Electronically Signed On 07-16-2024 12:14:39 RAISE DRILLER by Carl Rosa D.O.
--- OUTSIDE RECORDS SUMMARY | 2024-07-15 23:44 | XMS_ITS | Encounter Summary ---
Author Organization [facility] Address [address] [place] [address] Phone Care Team Providers Care Mass Spectroscopist Name Role Phone Jack Lima DO Primary Care Provider +1- [phone] Encounter Details Date Type Department Care Team (Late st Contact Info) Description 07/11/2024 Telephone [facility] Neuro Sleep [address] [facility] 6th [address] [place] [address] Abbey Garcia RPSGT Social History [...] on file Legal Sex Male 8:21 AM MODELING DIRECTOR Gender Identity Not on file Sexual Orientation Not on file 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 LVM. My chart message sent. LING DIRECTOR documented in this encounter Plan of Treatment Not on file documented as of this encounter Visit Diagnoses Not on filedocumented in this encounter Care Teams Mass Spectroscopist Relationship Specialty Start Date End Date Jack Lima DO [facility] [facility] [address] [place] [id number] PCP - General Internal Medicine 03/27/24 documented as of this encounter
--- OUTSIDE RECORDS SUMMARY | 2024-07-15 23:44 | XMS_ITS | Patient Health Record ---
Author Organization [facility] Address [address] [place] [address] Care Team Providers Care Marketing Program Manager Name Role Phone Sage Boland Primary Care Provider [phone] Reason For Referral No Information Immunizations Vaccine Route Administration Date Status Comme nts COVID-19 Moderna 2nd IM Intramuscular 07/30/2020 Administered EUA given. Jackie ent tolerated well. COVID-19 Moderna 1ST IM Intramuscular 07/02/2020 Administered Plan Of Treatment No Information
--- OUTSIDE RECORDS SUMMARY | 2024-07-15 23:44 | XMS_ITS | Clinical Summary ---
Author Organization [facility] Address [address] [place] [address] Care Team Providers Care Lubricating Engineer Name Role Phone Jack Lima DO Primary Care Provider [phone]- [phone] Allergies No known active allergies Medications cyanocobalamin [...] Type Department Care Team Description 07/11/2024 Telephone [facility] Neuro Sleep [address] [place] [address] Abbey Garcia ABRAHAMLORRAINE 05/30/2024 Telephone [facility] Scheduling [address] [place], [place] [id number] Lashonda Wren 05/27/2024 Telephone [facility] Neuro Sleep [address] [place] [phone] Marianne Fink RN DME order 05/24/2024 7:30 PM ADMINISTRATIVE SERVICES OFFICER Procedure visit [facility] Neuro Sleep [address] [place] [phone] DULCE (obstructive sleep apnea) (Primary Dx) 05/03/2024 9:00 AM ADMINISTRATIVE SERVICES OFFICER Office Visit [facility] Neuro Sleep [address] [place] [phone] Alberto Becerra MD PhD Suspected sleep apnea (Primary Dx); Snoring; Sleep disturbance; Hypersomnia 04/15/2024 Orders Only [facility] Pulmonary [address] [facility] [facility] [address] [place] [address] [place] [address] Skyler Sanderson MD Chronic obstructive pulmonary disease, [...] on file Legal Sex Male 8:21 AM ADMINISTRATIVE SERVICES OFFICER Gender Identity Not on file Sexual Orientation Not on file 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 Not on file Not on file Obstetrics History Last Filed Vital Signs Vital Sign Reading Time Taken Comments Blood Pressure 156/92 05/24/2024 7:42 PM ADMINISTRATIVE SERVICES OFFICER Pulse 51 05/24/2024 7:42 PM ADMINISTRATIVE SERVICES OFFICER Temperature 36.7 C (98.1 F) 05/24/2024 7:42 PM ADMINISTRATIVE SERVICES OFFICER Respiratory Rate 18 03/27/2024 1:54 PM ADMINISTRATIVE SERVICES OFFICER Oxygen Saturation 91% 05/24/2024 7:42 PM ADMINISTRATIVE SERVICES OFFICER Inhaled Oxygen Concentration - - Weight 75.1 kg (165 lb 8 oz) 05/24/2024 7:42 PM ADMINISTRATIVE SERVICES OFFICER Height 182.9 cm (6') 05/24/2024 7:42 PM ADMINISTRATIVE SERVICES OFFICER Body Mass Index 22.45 05/24/2024 7:42 PM ADMINISTRATIVE SERVICES OFFICER Plan of Treatment Health Maintenance Due Date [...] Comments PSG (COMPLEX) Routine 05/24/2024 10:00 PM ADMINISTRATIVE SERVICES OFFICER DULCE (obstructive sleep apnea) HEPATITIS PANEL, ACUTE Routine 11/30/2021 9:11 AM CDT Lymphopenia COLONOSCOPY 04/30/2021 4:42 PM ADMINISTRATIVE SERVICES OFFICER from Last 3 Months or Most Recently Relevant to Health Maintenance Results * PSG (COMPLEX) (05/24/2024 10:00 PM ADMINISTRATIVE SERVICES OFFICER) Narrative Nohemy Vizcarra MD PhD - 05/24/2024 10:00 PM ADMINISTRATIVE SERVICES OFFICER Nohemy Vizcarra MD PhD 05/27/2024 2:31 PM PSG-Sleep Provider Use Only Date/Time: 05/24/2024 10:00 PM Performed by: Nohemy Vizcarra MD PhD Authorized by: Alberto Becerra MD PhD us Alberto Becerra MD PhD [facility] Final Result * Hepatitis panel, acute (11/30/2021 9:11 AM CDT) Hep A IgM Nonreactive Nonreactive [facility] Comment: Interpretive Data: If Hep A IgM Ab is reported as Equivocal, a new sample should be drawn in two weeks for testing. Current interpretive data was last revised on 19. Hep B core IgM Nonreactive Nonreactive [facility] Comment: Interpretive Data If HepB Core IgM Ab is reported as Equivocal, a new sample should be drawn in two weeks for testing. Current interpretive data was last revised on 19. Hep C Ab Nonreactive Nonreactive [facility] Comment:Antibodies to HCV no t detected. Does NOT exclude the possibility of recent exposure to HCV. HepBsAg Nonreactive Nonreactive [facility] Blood 11/30/2021 9:11 AM CDT 11/30/2021 11:21 AM CDT us Sharda Vilchis MD LAB MICROBIOLOGY - GENERAL O RDERABLES Edited Result - Final [facility] [place] [address] * COLONOSCOPY (04/30/2021 4:42 PM ADMINISTRATIVE SERVICES OFFICER) Anatomical Region Laterality Modality Other Narrative Procedure Note Bronson Smith MD PhD - 04/30/2021 4:42 PM CST [facility] Patient Name: Colin Evans Procedure Date: 04/30/2021 4:42 PM Date of : 1960 Admit Type: Outpatient Age: 61 Gender: Male Attending MD: Bronson Smith MD,PHD Room: [facility] ENDOSCOPY ROOM 8 Note Status: [...] The scope was passed under direct vision.The [id number] endoscope was introduced through the anus and [...] On: 04/30/2021 4:42 PM Recognized by the [place] for promoting quality in endoscopy Bronson Smith MD PhD ENDOSCOPY PROCEDURES F inal Result from Last 3 Months or Most Recently Relevant to Health Maintenance Insurance [facility] H[facility]/PPO Address: [address] [address] ANTHEM ACCESS CHOICE [facility] HMO/PPO Address: [facility] [address] [place] [address] Advance Directives For more information, please contact: [phone] * Full Code (Latest Code Status on File) Date Activated Date Inactivated Comments 04/30/2021 4:18 PM 04/30/2021 9:51 PM Care Teams Lubricating Engineer Relationship Specialty Start Date End Date Jack Lima DO [address] [address] PCP - General Internal Medicine 03/27/24
--- OUTSIDE RECORDS SUMMARY | 2024-07-15 23:44 | XMS_ITS | Referral Summary ---
Author Organization [facility] Address [address] [place] [address] Care Team Providers Care Gore Seamer Name Role Phone Jack Lima DO Primary Care Provider +1- [phone] Encounters Date Type Department Care Team Description 07/11/[address] [facility] Neuro Sleep [address] 6th [address] [place] [address] Abbey Garcia RPSGT 05/30/[address] [facility] Scheduling [address] [place] [address] Lashonda Wren 05/27/[address] [facility] Neuro Sleep [address] [place] [address] Marianne Fink RN DME order 05/24/2024 7:30 PM STATE APPELLATE CLERK Procedure visit [facility] Neuro Sleep [address] [place] [address] DULCE (obstructive sleep apnea) (Primary Dx) 05/03/2024 9:00 AM STATE APPELLATE CLERK Office Visit [facility] Neuro Sleep [address] [place] [address] Alberto Becerra MD PhD Suspected sleep apnea (Primary Dx); Snoring; Sleep disturbance; Hypersomnia 04/15/[address] 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 Not on file Not on file Last Filed Vital Signs Vital Sign Reading Time Taken Comments Blood Pressure 156/92 05/24/2024 7:42 PM STATE APPELLATE CLERK Pulse 51 05/24/2024 7:42 PM STATE APPELLATE CLERK Temperature 36.7 C (98.1 F) 05/24/2024 7:42 PM STATE APPELLATE CLERK Respiratory Rate 18 03/27/2024 1:54 PM STATE APPELLATE CLERK Oxygen Saturation 91% 05/24/2024 7:42 PM STATE APPELLATE CLERK Inhaled Oxygen Concentration - - Weight 75.1 kg (165 lb 8 oz) 05/24/2024 7:42 PM STATE APPELLATE CLERK Height 182.9 cm (6') 05/24/2024 7:42 PM STATE APPELLATE CLERK Body Mass Index 22.45 05/24/2024 7:42 PM STATE APPELLATE CLERK Plan of Treatment Not on file Procedures Procedure Name Priority Date/Time Associated Diagnosis Comments PSG (COMPLEX) Routine 05/24/2024 10:00 PM STATE APPELLATE CLERK DULCE (obstructive sleep apnea) HEPATITIS PANEL, ACUTE Routine 11/30/2021 9:11 AM CDT Lymphopenia COLONOSCOPY 04/30/2021 4:42 PM STATE APPELLATE CLERK from Last 3 Months or Most Recently Relevant to Health Maintenance Results * PSG (COMPLEX) (05/24/2024 10:00 PM STATE APPELLATE CLERK) Narrative Nohemy Vizcarra MD PhD - 05/24/2024 10:00 PM STATE APPELLATE CLERK Nohemy Vizcarra MD PhD 05/27/2024 2:31 PM PSG-Sleep Provider Use Only Date/Time: 05/24/2024 10:00 PM Performed by: Nohemy Vizcarra MD PhD Authorized by: Alberto Becerra MD PhD us Alberto Becerra MD PhD [facility] ORDER[facility] BLES Final Result * Hepatitis panel, acute (11/30/2021 9:11 AM CDT) Hep A IgM Nonreactive Nonreactive [facility] Comment: Interpretive Data: If Hep A IgM Ab is reported as Equivocal, a new sample should be drawn in two weeks for testing. Current interpretive data was last revised on 19. Hep B core IgM Nonreactive Nonreactive [facility] Comment: Interpretive Data If HepB Core IgM Ab is reported as Equivocal, a new sample should be drawn in two weeks for testing. Current interpretive data was last revised on 19. Hep C Ab Nonreactive Nonreactive [facility] Comment:Antibodies to HCV no t detected. Does NOT exclude the possibility of recent exposure to HCV. HepBsAg Nonreactive Nonreactive [facility] Blood 11/30/2021 9:11 AM CDT 11/30/2021 11:21 AM CDT Sharda Vilchis MD LAB MICROBIOLOGY - GENERAL O RDERABLES Edited Result - Final [facility] [address] [facility] [place] [address] * COLONOSCOPY (04/30/2021 4:42 PM STATE APPELLATE CLERK) Anatomical Region Laterality Modality Other Narrative Procedure Note Bronson Smith MD PhD - 04/30/2021 4:42 PM CST [facility] Patient Name: Colin Evans Procedure Date: 04/30/2021 4:42 PM Date of : 1960 Admit Type: Outpatient Age: 61 Gender: Male Attending MD: Bronson Smith MD,PHD Room: [facility] ENDOSCOPY ROOM 8 Note Status: Finalized Procedure: [...] The scope was passed under direct vision.The [id number] endoscope was introduced through the anus and [...] On: 04/30/2021 4:42 PM Recognized by the [employer] for promoting quality in endoscopy Bronson Smith MD PhD ENDOSCOPY PROCEDURES F inal Result from Last 3 Months or Most Recently Relevant to Health Maintenance Insurance [place] [address] [employer] [facility] Advance Directives For more information, please contact: [phone] * Full Code (Latest Code Status on File) Date Activated Date Inactivated Comments 04/30/2021 4:18 PM 04/30/2021 9:51 PM Care Teams Gore Seamer Relationship Specialty Start Date End Date Jack Lima DO [facility] [facility] [address] [address] [place] [id number] PCP - General Internal Medicine 03/27/24
[2024-07-16] VITALS (14 sets, daily range): BP systolic 118–136; BP diastolic 68–101; PULSE 65–82; RESP 15–26; O2SAT 90–97
[2024-07-16 00:19] LABS: Troponin I < 0.012 ng/mL (0.000-0.034)
[2024-07-16 01:36] LABS: D Dimer 0.53 ug/mL (<0.48)
== END 2024-07-16 01:57 | disposition home or self-care (01) ==
PROVIDERS: Emergency Medicine; Physician Assistant; Emergency Provider Student in an Organized Health Care Education/Training Program; PCP Internal Medicine
DX: R07.89 Other chest pain (principal); F17.210 Nicotine dependence, cigarettes, uncomplicated; Z90.49 Acquired absence of other specified parts of digestive tract; Z79.899 Other long term (current) drug therapy; J43.9 Emphysema, unspecified; R91.8 Other nonspecific abnormal finding of lung field; I51.7 Cardiomegaly; R94.31 Abnormal electrocardiogram [ECG] [EKG]; I45.10 Unspecified right bundle-branch block
CPT/HCPCS: 36415; 71046; 80053; 83690; 83880; 84484; 85025; 85380; 85610; 85730; 93005; 99284

== ENCOUNTER 2024-08-08 08:18 | Outpatient (CLI) | payer OTHER, SELFPAY ==
--- NOTE | ~2024-08-08 | NM_ITS ---
EXAMINATION: NM dariusz stress w perfusion DATE: 08/08/2024 12:33 INDICATION: Chest pain TECHNIQUE: Rest images were obtained following intravenous administration of 10.4 mCi Tc99m tetrofosm in (Myoview). The patient was infused intravenously with Lexiscan (Regadenoson). Then, 33.8 mCi Tc99m tetrofosmin (Myoview) was administered intravenously, and stress images were obtained. Data was stephany nstructed into short axis and horizontal and vertical long axis SPECT images. Gated SPECT images were also obtained. COMPARISON: None. FINDINGS: There is no definite reversible or fixed perfusion abnormality to suggest ischemia or infar ction. There is normal left ventricular chamber size, wall motion and ejection fraction. Left ventr icular ejection fraction measures 66%. IMPRESSION: 1. Normal myocardial perfusion at rest and during stress. 2. Left ventricular ejection fraction measuring 66%. Reviewed, dictated and finalized at location A.
--- OUTSIDE RECORDS SUMMARY | 2024-08-08 08:22 | XMS_ITS | Patient Health Record ---
Author Organization [facility] Address [address] [place] [address] Care Team Providers Care Development System Efficiency Manager Name Role Phone Sage Boland Primary Care Provider [phone] Reason For Referral No Information Immunizations Vaccine Route Administration Date Status Comme nts COVID-19 Moderna 1ST IM Intramuscular 07/02/2020 Administered COVID-19 Moderna 2nd IM Intramuscular 07/30/2020 Administered EUA given. Jackie ent tolerated well. Plan Of Treatment No Information
--- OUTSIDE RECORDS SUMMARY | 2024-08-08 08:22 | XMS_ITS | Encounter Summary ---
Author Organization [facility] Address [address] [place] [address] Phone Care Team Providers Care Yard Switch Operator Name Role Phone Jack Lima DO Primary Care Provider +1- [phone] Encounter Details Date Type Department Care Team (Late st Contact Info) Description 07/18/2024 Results Follow-Up [facility] Pulmonary [address] [facility] [address] 8th [place] [address] [place] [address] Skyler Sanderson MD [address] [place], [place] [id number] Social History Tobacco Use Types Packs/Day Years Used Date Smoking Tobacco: Every Day Cigarettes AUDIT-C Answer Date Recorded Q1: How often do you have a drink containing alc ohol? 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
--- OUTSIDE RECORDS SUMMARY | 2024-08-08 08:22 | XMS_ITS | Referral Summary ---
Author Organization [facility] Address [address] [place] [address] Care Team Providers Care Battery Vent Plug Inserter Name Role Phone Jack Lima DO Primary Care Provider +1- [phone] Encounters Date Type Department Care Team Description 07/22/2024 Telephone [facility] Pulmonary [address] [facility] 8th [place] [address] [place] [address] Latisha Serrano RN 07/18/2024 Results Follow-Up [facility] Pulmonary [address] [facility] 8th [place] [address] [place] [address] Skyler Sanderson MD 07/17/2024 1:24 PM SUPERVISOR GENERAL - 07/17/2024 11:59 PM SUPERVISOR GENERAL Hospital Encounter [facility] [address] [place] [address] Skyler Sanderson MD Chronic obstructive pulmonary disease, unspecified COPD type (HCC); Lung nodule seen on imaging study Discharge Disposition: Discharge to home or self care 07/17/2024 1:52 PM SUPERVISOR GENERAL - 07/17/2024 11:59 PM SUPERVISOR GENERAL Hospital Encounter [facility] Pulmonary [address] [facility] [address] [place] [address] Chronic obstructive pulmonary disease, unspecified COPD type (HCC) Discharge Disposition: Discharge to home or self care 07/17/2024 3:30 PM SUPERVISOR GENERAL Office Visit [facility] Pulmonary [address] [facility] 8th [place] [address] [place] [address] Skyler Sanderson MD Chronic obstructive pulmonary disease, unspecified COPD type (HCC) (Primary Dx); Lung nodule; DULCE (obstructive sleep apnea); Compression fracture of thoracic vertebra, unspecified thoracic vertebral level, sequela 07/11/2024 Telephone [facility] Neuro Sleep [address] [place] [address] JoseAbbey, RPSGT 05/30/2024 Telephone [facility] Scheduling [address] [place] [address] Lashonda Wren 05/27/2024 Telephone [facility] Sleep [address] [place] [address] Marianne Fink RN DME order 05/24/2024 7:30 PM SUPERVISOR GENERAL Procedure visit [facility] [address] [place] [address] DULCE (obstructive sleep apnea) (Primary Dx) from Last 3 Months Allergies No known [...] or shortness of breath 8.5 g 5 Active Active Problems Problem Noted Date Diagnosed Date Dyspnea on exertion 03/27/2024 DULCE (obstructive sleep apnea) 03/27/2024 Chronic obstructive pulmonary disease 03/27/2024 Pectus excavatum 03/27/2024 Tobacco use disorder 03/27/2024 Diverticulitis of colon 11/20/2015 Immunizations Immunization Administration Dates Next Due Influenza, Trivalent, Cell C ulture-based MDCK, Preservative Free, Antibiotic Free, Intramuscular 03/27/2024 Pneumococcal Conjugate Pcv20 03/27/2024 Social History Tobacco Use Types Packs/Day Years Used Date Smoking Tobacco: Every Day Cigarettes Tobacco Cessation:Ready to Q uit: Yes; Counseling Given: No AUDIT-C Answer Date Recorded Q1: How often do you have a drink containing alc ohol? 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 Not on file Last Filed Vital Signs Vital Sign Reading Time Taken Comments Blood Pressure 126/76 07/17/2024 3:42 PM SUPERVISOR GENERAL Pulse 68 07/17/2024 3:42 PM SUPERVISOR GENERAL Temperature 36.4 C (97.5 F) 07/17/2024 3:42 PM SUPERVISOR GENERAL Respiratory Rate 19 07/17/2024 3:42 PM SUPERVISOR GENERAL Oxygen Saturation 97% 07/17/2024 3:42 PM SUPERVISOR GENERAL Inhaled Oxygen Concentration - - Weight 73.9 kg (163 lb) 07/17/2024 3:42 PM SUPERVISOR GENERAL Height 181.6 cm (5' 11.5 ) 07/17/2024 3:42 PM CS T Body Mass Index 22.42 07/17/2024 3:42 PM SUPERVISOR GENERAL Plan of Treatment Not on file Procedures Procedure Name Priority Date/Time Associated Diagnosis Comments PULMONARY FUNCTION TEST (PFT) Routine 07/17/2024 2:06 PM SUPERVISOR GENERAL Chronic obstructive pulmonary disease, unspecified COPD type (HCC) CT CHEST WO CONTRAST Schedule Routine, Read Routine (OP Routine) 07/17/2024 1:48 PM SUPERVISOR GENERAL Chronic obstructive pulmonary disease, unspecified COPD type (HCC) Lung nodule seen on imaging study PSG (COMPLEX) Routine 05/24/2024 10:00 PM SUPERVISOR GENERAL DULCE (obstructive sleep apnea) HEPATITIS PANEL, ACUTE Routine 11/30/2021 9:11 AM CDT Lymphopenia COLONOSCOPY 04/30/2021 4:42 PM SUPERVISOR GENERAL from Last 3 Months or Most Recently Relevant to Health Maintenance Results * Pulmonary Function Test - (07/17/2024 2:06 PM SUPERVISOR GENERAL) FVC PRE 3.23 L [facility] FVC %PRE PRED 71 % [facility] FEV1 PRE 1.52 L [facility] FEV1 %PRE PRED 43 % [facility] FEV1/FVC PRE 47.0 % [facility] Anatomical Region Laterality Modality PFT 07/17/2024 2:02 PM SUPERVISOR GENERAL Narrative 07/18/2024 11:00 AM SUPERVISOR GENERAL PFT performed at:->[facility] Adult PFT Lab- [id number] Procedure:->Spirometry Pulmonary Function Test Interpretation SPIROMETRY: There is a decrease in expiratory airflow at all lung volumes. The FEV1 to FVC ratio is reduced. The inspiratory loop is appropriate for the expiratory flow abnormality. Impression: There is a severe obstructive defect. Compared with most recent study, there has been significant interval improvement of the FVC. Compared with most recent study, there has been significant interval improvement of the FEV1. The attending pulmonary physician certifies a physician presence in the [facility] during the administration of aerosolized bronchodilator. The attending pulmonary physician certifies that he/she has reviewed and interpreted the graphic and numerical data of this pulmonary function study and agrees with the written final report. The lower limit of normal for PaO2 and %HbO2 is age dependent. However, the [facility] Pulmonary Function Laboratory defines hypoxemia as a PaO2 <56 mm Hg or a %HbO2 <89%. Starting on May of 2024 the [facility] Pulmonary Function Laboratory utilizes race neutral GLI Global normative equations. Skyler Sanderson MD PFT ORDERABLES Final Re sult * CT chest without contrast (07/17/2024 1:48 PM SUPERVISOR GENERAL) Anatomical Region Laterality Modality Body N/A Computed Tomogra phy 07/17/2024 2:25 PM SUPERVISOR GENERAL Impressions 07/17/2024 2:25 PM SUPERVISOR GENERAL 1. Unchanged solid left lower lobe pulmonary nodule. Recommend repeat CT in 6 months to ensure stability. 2. Mild compression deformities of the T6 and T10 vertebral bodies, age indeterminate but new from prior examination. Recommend correlation with clinical history and physical examination. Electronically signed by: Thiago Espinoza M.D. Narrative 07/17/2024 2:25 PM SUPERVISOR GENERAL EXAMINATION: CT CHEST WITHOUT CONTRAST HISTORY: Lung nodule TECHNIQUE: Multiple CT images of the chest were performed according to the standard protocol without intravenous contrast. COMPARISON: 04/04/2024 FINDINGS: Severe apical predominant centrilobular emphysema. Bullous changes noted in the left lung apex. No significant interval change in solid left lower lobe pulmonary nodule measuring 1.1 x 0.7 cm, previously 1.2 x 0.6 cm (series 2, image 90). No new pulmonary nodules are identified. No focal consolidation, pleural effusion or pneumothorax. There is no adenopathy throughout the thorax. The aorta and its branches are normal in course and contour. Heart size is normal. No pericardial effusion. Imaged portions of the upper abdomen are unremarkable. Unchanged findings of pectus excavatum. Mild superior endplate compression deformities of the T6 and T10 vertebral bodies which are new from prior examination but age indeterminate. Unchanged wedging of the T9 vertebral body. Skyler Sanderson MD IMG CT PROCEDURES Final Result * PSG (COMPLEX) (05/24/2024 10:00 PM SUPERVISOR GENERAL) Narrative Nohemy Vizcrara MD PhD - 05/24/2024 10:00 PM SUPERVISOR GENERAL Nohemy Vizcarra MD PhD 05/27/2024 2:31 PM [facility]G-Sleep Provider Use Only Date/Time: 05/24/2024 10:00 PM Performed by: Nohemy Vizcarra MD PhD Authorized by: Alberto Becerra MD PhD us Alberto Becerra MD PhD [facility] ORDER[facility] BLES Final Result * Hepatitis panel, acute (11/30/2021 9:11 AM CDT) Hep A IgM Nonreactive Nonreactive [facility] Comment: Interpretive Data: If Hep A IgM Ab is reported as Equivocal, a new sample should be drawn in two weeks for testing. Current interpretive data was last revised on 19. Hep B core IgM Nonreactive Nonreactive [facility] Comment: Interpretive Data If HepB Core IgM Ab is reported as Equivocal, a new sample should be drawn in two weeks for testing. Current interpretive data was last revised on 19. Hep C Ab Nonreactive Nonreactive [facility] Comment:Antibodies to HCV no t detected. Does NOT exclude the possibility of recent exposure to HCV. HepBsAg Nonreactive Nonreactive [facility] Blood 11/30/2021 9:11 AM CDT 11/30/2021 11:21 AM CDT us Sharda Vilchis MD LAB MICROBIOLOGY - GENERAL O RDERABLES Edited Result - Final [facility] [address] [facility] Department [place] [address] * COLONOSCOPY (04/30/2021 4:42 PM SUPERVISOR GENERAL) Anatomical Region Laterality Modality Other Narrative Procedure Note Bronson Smith MD PhD - 04/30/2021 4:42 PM C[facility] Patient Name: Colin Evans Procedure Date: 04/30/2021 4:42 PM Date of : 1960 Admit Type: Outpatient Age: 61 Gender: Male Attending MD: Bronson Smith MD,PHD Room: [facility] ENDOSCOPY ROOM 8 Note Status: Finalized Procedure: [...] The scope was passed under direct vision.The [id number] endoscope was introduced through the anus and [...] On: 04/30/2021 4:42 PM Recognized by the [employer] for promoting quality in endoscopy Bronson Smith MD PhD ENDOSCOPY PROCEDURES F inal Result from Last 3 Months or Most Recently Relevant to Health Maintenance Insurance [facility] H[facility]/PPO Address: [address] [address] [place] [address] [facility] ACCESS CHOICE R [facility] H[facility]/PPO Address: [address] [address] Advance Directives For more information, please contact: [phone] * Full Code (Latest Code Status on File) Date Activated Date Inactivated Comments 04/30/2021 4:18 PM 04/30/2021 9:51 PM Care Teams Battery Vent Plug Inserter Relationship Specialty Start Date End Date Jack Lima DO PCP - General Internal Medicine 03/27/24
--- OUTSIDE RECORDS SUMMARY | 2024-08-08 08:22 | XMS_ITS | Encounter Summary ---
Author Organization [facility] Address [address] [place] [address] Phone Care Team Providers Care Concession Manager Name Role Phone Jack Lima DO Primary Care Provider +1- [phone] Encounter Details Date Type Department Care Team (Late st Contact Info) Description 07/11/2024 Telephone [facility] Neuro Sleep [address] [facility] 6th Floor [address] [place] [address] Abbey Garcia RPSGT Social History [...] file Legal Sex Male 8:21 AM SENIOR WINDOWS SYSTEMS ENGINEER Gender Identity Not on file Sexual Orientation Not on file 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 LVM. My chart message sent. OR WINDOWS SYSTEMS ENGINEER documented in this encounter Plan of Treatment Not on file documented as of this encounter Visit Diagnoses Not on filedocumented in this encounter Care Teams Concession Manager Relationship Specialty Start Date End Date Jack Lima DO PCP - General Internal Medicine 03/27/24 documented as of this encounter
--- OUTSIDE RECORDS SUMMARY | 2024-08-08 08:22 | XMS_ITS | Clinical Summary ---
Author Organization [facility] Address [address] [place] [address] Care Team Providers Care Bus Company Manager Name Role Phone Jack Lima DO Primary Care Provider +1- [phone] Allergies No known active allergies Medications cyanocobalamin [...] Type Department Care Team Description 07/22/2024 Telephone [facility] Pulmonary [address] [facility] 8th [place] [address] [place] [address] Latisha Serrano RN 07/18/2024 Results Follow-Up [facility] Pulmonary [address] [facility] 8th [place] [address] [place] [address] Skyler Sanderson MD 07/17/2024 3:30 PM PEGGER DOBBY LOOMS Office Visit [facility] Pulmonary [address] [facility] 8th [place] [address] [place] [address] Skyler Sanderson MD Chronic obstructive pulmonary disease, unspecified COPD type (HCC) (Primary Dx); Lung nodule; DULCE (obstructive sleep apnea); Compression fracture of thoracic vertebra, unspecified thoracic vertebral level, sequela 07/17/2024 1:52 PM PEGGER DOBBY LOOMS - 07/17/2024 11:59 PM PEGGER DOBBY LOOMS Hospital Encounter [facility] Pulmonary [address] [facility] [address] [place] [address] Chronic obstructive pulmonary disease, unspecified COPD type (HCC) Discharge Disposition: Discharge to home or self care 07/17/2024 1:24 PM PEGGER DOBBY LOOMS - 07/17/2024 11:59 PM PEGGER DOBBY LOOMS Hospital Encounter [facility] [address] [place] [address] Skyler Sanderson MD Chronic obstructive pulmonary disease, unspecified COPD type (HCC); Lung nodule seen on imaging study Discharge Disposition: Discharge to home or self care 07/11/2024 Telephone [facility] Neuro Sleep [address] [facility] 6th Floor [address] [place] [address] Abbey Garcia RPSGT 05/30/2024 Telephone [facility] Scheduling [address] [place] [address] Lashonda Wren 05/27/2024 Telephone [facility] Neuro Sleep [address] [facility] 6th Floor [address] [place] [address] Marianne Fink RN DME order 05/24/2024 7:30 PM PEGGER DOBBY LOOMS Procedure visit [facility] Neuro Sleep [address] [facility] 6th [address] [place] [address] DULCE (obstructive sleep apnea) (Primary Dx) from Last 3 Months Immunizations Immunization Administration Dates Next Due Influenza, Trivalent, Cell C ulture-based MDCK, Preservative Free, Antibiotic Free, Intramuscular 03/27/2024 Pneumococcal Conjugate Pcv20 03/27/2024 Surgical History Surgery Date Site/Laterality Comments COLECTOMY 05/22/2013 - 05/21/2014 Medical History Medical History Date Comments COPD (chronic obstructive pulmonary disease) (HC C) HTN (hypertension) Diverticulitis DULCE (obstructive sleep apnea) 03/27/2024 Family History Medical History Relation Name Comments [...] on file Legal Sex Male 8:21 AM PEGGER DOBBY LOOMS Gender Identity Not on file Sexual Orientation Not on file 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 Not 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 Not on file Obstetrics History Last Filed Vital Signs Vital Sign Reading Time Taken Comments Blood Pressure 126/76 07/17/2024 3:42 PM PEGGER DOBBY LOOMS Pulse 68 07/17/2024 3:42 PM PEGGER DOBBY LOOMS Temperature 36.4 C (97.5 F) 07/17/2024 3:42 PM PEGGER DOBBY LOOMS Respiratory Rate 19 07/17/2024 3:42 PM PEGGER DOBBY LOOMS Oxygen Saturation 97% 07/17/2024 3:42 PM PEGGER DOBBY LOOMS Inhaled Oxygen Concentration - - Weight 73.9 kg (163 lb) 07/17/2024 3:42 PM PEGGER DOBBY LOOMS Height 181.6 cm (5' 11.5 ) 07/17/2024 3:42 PM CS T Body Mass Index 22.42 07/17/2024 3:42 PM PEGGER DOBBY LOOMS Plan of Treatment Health Maintenance Due Date Last Done Comments Depression Screening 1960 Prostate Cancer Screening-PSA 1960 Hepatitis B Screening 1979 Regular Well Visit/Exam 18-64 1979 Zoster Vaccine (1 of 2) 2011 Covid-19 Vaccine (3 - season) 01/21/202403/2021, 07/02/2020 DTaP/Tdap/Td Vaccine (2 - Td or Tdap) 02/10/2031 Colon Cancer Screening-Colonoscopy 04/30/20312020 Hepatitis C Screening Completed 11/30/2021 Influenza Vaccine Completed 03/27/2024 Pneumococcal vaccine <65 Completed 03/27/2024 Procedures Procedure Name Priority Date/Time Associated Diagnosis Comments PULMONARY FUNCTION TEST (PFT) Routine 07/17/2024 2:06 PM PEGGER DOBBY LOOMS Chronic obstructive pulmonary disease, unspecified COPD type (HCC) CT CHEST WO CONTRAST Schedule Routine, Read Routine (OP Routine) 07/17/2024 1:48 PM PEGGER DOBBY LOOMS Chronic obstructive pulmonary disease, unspecified COPD type (HCC) Lung nodule seen on imaging study PSG (COMPLEX) Routine 05/24/2024 10:00 PM PEGGER DOBBY LOOMS DULCE (obstructive sleep apnea) HEPATITIS PANEL, ACUTE Routine 11/30/2021 9:11 AM CDT Lymphopenia COLONOSCOPY 04/30/2021 4:42 PM PEGGER DOBBY LOOMS from Last 3 Months or Most Recently Relevant to Health Maintenance Results * Pulmonary Function Test - (07/17/2024 2:06 PM PEGGER DOBBY LOOMS) FVC PRE 3.23 L [facility] FVC %PRE PRED 71 % [facility] FEV1 PRE 1.52 L [facility] FEV1 %PRE PRED 43 % [facility] FEV1/FVC PRE 47.0 % [facility] Anatomical Region Laterality Modality PFT 07/17/2024 2:02 PM PEGGER DOBBY LOOMS Narrative 07/18/2024 11:00 AM PEGGER DOBBY LOOMS PFT performed at:->[facility] Adult PFT Lab- [facility] Procedure:->Spirometry Pulmonary Function [...] and %HbO2 is age dependent. However, the [facility] Pulmonary Function Laboratory defines hypoxemia as a PaO2 <56 mm Hg or a %HbO2 <89%. Starting on May of 2024 the [facility] Pulmonary Function Laboratory utilizes race neutral GLI Global normative equations. us Skyler Sanderson MD PFT ORDERABLES Final Re sult * CT chest without contrast (07/17/2024 1:48 PM PEGGER DOBBY LOOMS) Anatomical Region Laterality Modality Body N/A Computed Tomogra phy 07/17/2024 2:25 PM PEGGER DOBBY LOOMS Impressions 07/17/2024 2:25 PM PEGGER DOBBY LOOMS 1. Unchanged solid left lower lobe pulmonary nodule. Recommend repeat CT in 6 months to ensure stability. 2. Mild compression deformities of the T6 and T10 vertebral bodies, age indeterminate but new from prior examination. Recommend correlation with clinical history and physical examination. Electronically signed by: Thiago Espinoza M.D. Narrative 07/17/2024 2:25 PM PEGGER DOBBY LOOMS EXAMINATION: CT CHEST WITHOUT CONTRAST HISTORY: Lung [...] Unchanged wedging of the T9 vertebral body. us Skyler Sanderson MD IMG CT PROCEDURES Final Result * PSG (COMPLEX) (05/24/2024 10:00 PM PEGGER DOBBY LOOMS) Narrative Nohemy Vizcarra MD PhD - 05/24/2024 10:00 PM PEGGER DOBBY LOOMS Nohemy Vizcarra MD PhD 05/27/2024 2:31 PM PSG-Sleep Provider Use Only Date/Time: 05/24/2024 10:00 PM Performed by: Nohemy Vizcarra MD PhD Authorized by: Alberto Becerra MD PhD Alberto Becerra MD PhD [facility] ORDERA BLES Final Result * Hepatitis panel, acute (11/30/2021 9:11 AM CDT) Hep A IgM Nonreactive Nonreactive [facility] Comment: Interpretive Data: If Hep A IgM Ab is reported as Equivocal, a new sample should be drawn in two weeks for testing. Current interpretive data was last revised on 19. Hep B core IgM Nonreactive Nonreactive [facility] Comment: Interpretive Data If HepB Core IgM Ab is reported as Equivocal, a new sample should be drawn in two weeks for testing. Current interpretive data was last revised on 19. Hep C Ab Nonreactive Nonreactive [facility] Comment:Antibodies to HCV no t detected. Does NOT exclude the possibility of recent exposure to HCV. HepBsAg Nonreactive Nonreactive [facility] Blood 11/30/2021 9:11 AM CDT 11/30/2021 11:21 AM CDT us Sharda Vilchis MD LAB MICROBIOLOGY - GENERAL O RDERABLES Edited Result - Final [facility] Department [place] [address] * COLONOSCOPY (04/30/2021 4:42 PM PEGGER DOBBY LOOMS) Anatomical Region Laterality Modality Other Narrative Procedure Note Bronson Smith MD PhD - 04/30/2021 4:42 PM CST [facility] Patient Name: Colin Evans Procedure Date: 04/30/2021 4:42 PM Date of : 1960 Admit Type: Outpatient Age: 61 Gender: Male Attending MD: Bronson Smith MD,PHD Room: [facility] ENDOSCOPY ROOM 8 Note Status: Finalized [...] The scope was passed under direct vision.The [id number] endoscope was introduced through the anus and [...] On: 04/30/2021 4:42 PM Recognized by the [place] for promoting quality in endoscopy Bronson Smith MD PhD ENDOSCOPY PROCEDURES F inal Result from Last 3 Months or Most Recently Relevant to Health Maintenance Insurance [facility] Address: [address] [address] [place] [address] [facility] H[facility]/PPO Address: [address] [address] [place] [address] Advance Directives For more information, please contact: [phone] * Full Code (Latest Code Status on File) Date Activated Date Inactivated Comments 04/30/2021 4:18 PM 04/30/2021 9:51 PM Care Teams Bus Company Manager Relationship Specialty Start Date End Date Jack Lima DO PCP - General Internal Medicine 03/27/24
--- NOTE | 2024-08-08 09:22 | EST_ITS ---
Patient Info Name: Colin Evans Age: 64 years : 1960 Gender: Male Ht: 72 in Wt: 163 lbs BSA: 1.94 m2 Exam Date: 08/08/2024 10:49 AM Exam Location: Echo Lab Patient Status: Outpatient Admit Date: 08/08/2024 Staff Ordering Physician: Stacia Hernandez Attending Provider: Stacia Hernandez Exercise Technologist: Geno Leigh RDCS Exercise Physician: Carl Rosa DO Exam Type: CA stress dariusz w NM Study Info Indications R07.9 - Chest pain, unspecified A regadenoson stress test was performed. Summary 1. 1. Negative lexiscan stress test for ischemic ST changes by ECG criteria. 2. 2. Baseline hypertension. 3. 3. Nuclear scan to follow and will be reported separately. Please correlate with it. 4. 4. Patient informed of the above results. Protocol: Lexiscan Stress ECG Details Stage: REST Duration (min): 1 min : 44 sec HR (bpm): 77 SBP (mmHg): 147 DBP (mmHg): 103 Stage: REST Duration (min): 5 min : 52 sec HR (bpm): 79 SBP (mmHg): 147 DBP (mmHg): 103 Stage: STAGE 1 Duration (min): 0 min : 59 sec HR (bpm): 71 SBP (mmHg): 126 DBP (mmHg): 90 Stage: RECOVERY Duration (min): 1 min : 0 sec HR (bpm): 92 SBP (mmHg): 141 DBP (mmHg): 84 Stage: RECOVERY Duration (min): 2 min : 0 sec HR (bpm): 90 SBP (mmHg): 141 DBP (mmHg): 84 Stage: RECOVERY Duration (min): 3 min : 0 sec HR (bpm): 87 SBP (mmHg): 142 DBP (mmHg): 84 Stage: RECOVERY Duration (min): 4 min : 0 sec HR (bpm): 81 SBP (mmHg): 142 DBP (mmHg): 84 Stage: RECOVERY Duration (min): 4 min : 0 sec HR (bpm): 81 SBP (mmHg): 142 DBP (mmHg): 84 Rest HR: 79 bpm Peak HR: 94 bpm Rest Sys BP: 147 mmHg Peak Sys BP: 142 mmHg Max Pred HR: 157 bpm % Max Pred HR: 60 % Target HR: 133 bpm Max RPP: 13,348 bpm*mmHg Termination Reason: Completed protocol Cardiac Symptoms: Shortness of breath Total Time: 1 min : 0 sec Rest Olivares BP: 103 mmHg Peak Olivares BP: 84 mmHg Total Dose: 0.4 mg Resting ECG Sinus rhythm, PVC's, IRBBB. Stress ECG No ST changes. Arrhythmias None. Report Signatures
--- NOTE | 2024-08-08 09:24 | ECHO_ITS ---
Patient Info Name: Colin Evans Age: 64 years : 1960 Gender: Male Ht: 72 in Wt: 163 lbs BSA: 1.94 m2 HR: 68 bpm BP: 163 / 98 mmHg Technical Quality: Fair Exam Date: 08/08/2024 9:32 AM Exam Location: Echo Lab Patient Status: Outpatient Admit Date: 08/08/2024 Staff Ordering Physician: Stacia Hernandez Therapy Director: Natasha Wren RDCS Attending Provider: Stacia Hernandez Referring Physician: David SESAY; Exam Type: CA echo doppler color flow Study Info Indications R07.9 - Chest pain, unspecified Complete two-dimensional, color flow and Doppler transthoracic echocardiogram is performed. Summary 1. Complete two-dimensional, color flow and Doppler transthoracic echocardiogram is performed. 2. Left ventricular chamber dimension is normal. 3. Left ventricular systolic function is normal, estimated at 60-65%. 4. The left ventricular diastolic function is grade I diastolic dysfunction. 5. E/e' 8 is minimally elevated. 6. Mild right ventricular hypertrophy. 7. No pulmonary hypertension, estimated pulmonary arterial systolic pressure is 22 mmHg. 8. There is small pericardial effusion located posterolaterally. Left Ventricle E/e' 8 is minimally elevated. Left ventricular chamber dimension is normal. Left ventricular systolic function is normal, estimated at 60-65%. The left ventricular diastolic function is grade I diastolic dysfunction. Right Ventricle Mild right ventricular hypertrophy. Right ventricular chamber dimension is normal. Right ventricular systolic function is normal. Left Atria Left atrial chamber dimension is normal. Right Atria Right atrial chamber dimension is normal. Aortic Valve The aortic valve is trileaflet. There is no aortic valve stenosis. There is no aortic valve regurgitation. Pulmonic Valve There is no pulmonic regurgitation. Mitral Valve There is no mitral valve stenosis. There is no mitral valve regurgitation. Tricuspid Valve There is no tricuspid valve regurgitation. No pulmonary hypertension, estimated pulmonary arterial systolic pressure is 22 mmHg. Pericardium/Pleural There is small pericardial effusion located posterolaterally. No cardiac tamponade. Inferior Vena Cava Normal inferior vena cava with >50% collapse upon inspiration consistent with normal right atrial pressure, 5 mmHg. Aorta The aortic root size at the sinus of Valsalva is normal. Left Ventricular Outflow Tract Name Value Normal LVOT 2D LVOT Diameter 2.2 cm LVOT Doppler LVOT Peak Gradient 4 mmHg LVOT Mean Gradient 3 mmHg LVOT VTI 20 cm LVOT VTI/AV VTI Ratio 0.7 LVOT Stroke Volume 78 ml LVOT CO 17.4 l/min LVOT CI 9.0 l/min/m2 Mitral Valve Name Value Normal MV Doppler MV Decel Mcminn 280 cm/s2 MV PHT 61 ms MV Area (PHT) 3.6 cm2 4.0-5.0 MV Diastolic Function MV E Peak Velocity 59 cm/s MV A Peak Velocity 77 cm/s MV E/A 0.8 MV Decel Time 212 ms MV Annular TDI MV E/e' (Septal) 8.7 <=8.0 MV E/e' (Lateral) 8.9 <=8.0 MV E/e' (Average) 8.8 Tricuspid Valve Name Value Normal TV Regurgitation Doppler TR Peak Velocity 208 cm/s TR Peak Gradient 17 mmHg Estimated PAP/RSVP RA Pressure 5 mmHg <=5 PA Systolic Pressure 22 mmHg <36 RV Systolic Pressure 22 mmHg <36 Aortic Valve Name Value Normal AV Doppler AV Peak Velocity 122 cm/s AV Peak Gradient 6 mmHg AV Mean Gradient 4 mmHg AV VTI 28 cm AV Area (Cont Eq VTI) 2.8 cm2 >=3.0 AV Area (Cont Eq Devon) 3.2 cm2 AV Regurgitation 2D LVOT Area 3.8 cm2 Ventricles Name Value Normal LV Dimensions 2D/MM IVS Diastolic Thickness (2D) 1.1 cm 0.6-1.0 LVID Diastole (2D) 3.9 cm 4.2-5.8 LVIW Diastolic Thickness (2D) 1.1 cm 0.6-1.0 LVID Systole (2D) 2.7 cm 2.5-4.0 LVOT Diameter 2.2 cm LV Mass (2D Cubed) 142.64 g 88.00-224.00 LV Mass Index (2D Cubed) 74 g/m2 49-115 Relative Wall Thickness (2D) 0.56 LV Fractional Shortening/Ejection Fraction 2D/MM LV Fractional Shortening (2D) 32 % 25-43 LV EF (2D Teichzena) 61 % 52-72 RV Dimensions 2D/MM RVID Diastole (2D) 2.8 cm 2.5-3.5 Report Signatures
== END 2024-08-08 08:19 | disposition home or self-care (01) ==
PROVIDERS: PCP Internal Medicine; Visit Provider Clinical Nurse Specialist
DX: I11.9 Hypertensive heart disease without heart failure (principal); I31.39 Other pericardial effusion (noninflammatory)
CPT/HCPCS: 78452; 93017; 93306; A9502; J2785

== ENCOUNTER 2024-10-29 15:48 | Outpatient (CLI) | payer OTHER, SELFPAY ==
--- OUTSIDE RECORDS SUMMARY | 2024-10-29 17:01 | XMS_ITS | Clinical Summary ---
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 Not on file Obstetrics History Last Filed Vital Signs Vital Sign Reading Time Taken Comments Blood Pressure 126/76 07/17/2024 3:42 PM SECUR[employer] OPER[employer] ANALYST Pulse 68 07/17/2024 3:42 PM SECUR[employer] OPER[employer] C[employer] ANALYST Temperature 36.4 C (97.5 F) 07/17/2024 3:42 PM SECUR[employer] OPER[employer] ANALYST Respiratory Rate 19 07/17/2024 3:42 PM SECUR[employer] OPER[employer] ANALYST Oxygen Saturation 97% 07/17/2024 3:42 PM SECUR[employer] OPER[employer] ANALYST Inhaled Oxygen Concentration - - Weight 73.9 kg (163 lb) 07/17/2024 3:42 PM SECUR[employer] OPER[employer] C[employer] ANALYST Height 181.6 cm (5' 11.5) 07/17/2024 3:42 PM CS T Body Mass Index 22.42 07/17/2024 3:42 PM SECUR[employer] OPER[employer] ANALYST Plan of Treatment Health Maintenance Due Date [...] Procedure Name Priority Date/Time Associated Diagnosis Comments HEPATITIS PANEL, ACUTE Routine 11/30/2021 9:11 AM CDT Lymphopenia COLONOSCOPY 04/30/2021 4:42 PM SECUR[employer] OPER[employer] ANALYST from Last 3 Months or Most Recently Relevant to Health Maintenance Results * Hepatitis panel, acute (11/30/2021 9:11 AM CDT) Hep A IgM Nonreactive Nonreactive [facility] Comment: Interpretive Data: If Hep A IgM Ab is reported as Equivocal, a new sample should be drawn in two weeks for testing. Current interpretive data was last revised on 19. Hep B core IgM Nonreactive Nonreactive [facility] Comment: Interpretive Data If HepB Core IgM Ab is reported as Equivocal, a new sample should be drawn in two weeks for testing. Current interpretive data was last revised on 19. Hep C Ab Nonreactive Nonreactive [facility] Comment:Antibodies to HCV no t detected. Does NOT exclude the possibility of recent exposure to HCV. HepBsAg Nonreactive [facility] Blood 11/30/2021 9:11 AM CDT 11/30/2021 11:21 AM CDT us Sharda Vilchis MD LAB MICROBIOLOGY - GENERAL O RDERABLES Edited Result - Final [facility] [place] [address] * COLONOSCOPY (04/30/2021 4:42 PM SECUR[employer] OPER[employer] ANALYST) Anatomical Region Laterality Modality Other Narrative Procedure Note Bronson Smith MD PhD - 04/30/2021 4:42 PM [facility] Patient Name: Colin Evans Procedure Date: 04/30/2021 4:42 PM Date of : 1960 Admit Type: Outpatient Age: 61 Gender: Male Attending MD: Bronson Smith MD,PHD Room: [facility] ENDOSCOPY ROOM 8 Note Status: Finalized [...] The scope was passed under direct vision.The [id number] endoscope was introduced through the anus and [...] On: 04/30/2021 4:42 PM Recognized by the [employer] for promoting quality in endoscopy Bronson Smith MD PhD ENDOSCOPY PROCEDURES F inal Result from Last 3 Months or Most Recently Relevant to Health Maintenance Insurance [facility] HMO/PPO Address: [facility] [id number] [place] [id number] [facility] CHO[facility] HMO/PPO Address: [address] [address] [place] [address] Advance Directives For more information, please contact: [phone] * Full Code (Latest Code Status on File) Date Activated Date Inactivated Comments 04/30/2021 4:18 PM 04/30/2021 9:51 PM Care Teams Inspector And Clerk Relationship Specialty Start Date End Date Jack Lima DO PCP - General Internal Medicine 03/27/24
--- OUTSIDE RECORDS SUMMARY | 2024-10-29 17:01 | XMS_ITS | Referral Summary ---
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 Not on file Last Filed Vital Signs Vital Sign Reading Time Taken Comments Blood Pressure 126/76 07/17/2024 3:42 PM KERRICK KLEANER OPERATOR Pulse 68 07/17/2024 3:42 PM KERRICK KLEANER OPERATOR Temperature 36.4 C (97.5 F) 07/17/2024 3:42 PM KERRICK KLEANER OPERATOR Respiratory Rate 19 07/17/2024 3:42 PM KERRICK KLEANER OPERATOR Oxygen Saturation 97% 07/17/2024 3:42 PM KERRICK KLEANER OPERATOR Inhaled Oxygen Concentration - - Weight 73.9 kg (163 lb) 07/17/2024 3:42 PM KERRICK KLEANER OPERATOR Height 181.6 cm (5' 11.5) 07/17/2024 3:42 PM CS T Body Mass Index 22.42 07/17/2024 3:42 PM KERRICK KLEANER OPERATOR Plan of Treatment Not on file Procedures Procedure Name Priority Date/Time Associated Diagnosis Comments HEPATITIS PANEL, ACUTE Routine 11/30/2021 9:11 AM CDT Lymphopenia COLONOSCOPY 04/30/2021 4:42 PM KERRICK KLEANER OPERATOR from Last 3 Months or Most Recently Relevant to Health Maintenance Results * Hepatitis panel, acute (11/30/2021 9:11 AM CDT) Hep A IgM Nonreactive Nonreactive [facility] Comment: Interpretive Data: If Hep A IgM Ab is reported as Equivocal, a new sample should be drawn in two weeks for testing. Current interpretive data was last revised on 19. Hep B core IgM Nonreactive Nonreactive [facility] Comment: Interpretive Data If HepB Core IgM Ab is reported as Equivocal, a new sample should be drawn in two weeks for testing. Current interpretive data was last revised on 19. Hep C Ab Nonreactive Nonreactive [facility] Comment:Antibodies to HCV no t detected. Does NOT exclude the possibility of recent exposure to HCV. HepBsAg Nonreactive Nonreactive [facility] Blood 11/30/2021 9:11 AM CDT 11/30/2021 11:21 AM CDT us Sharda Vilhcis MD LAB MICROBIOLOGY - GENERAL O RDERABLES Edited Result - Final [facility] Department [place] [address] * COLONOSCOPY (04/30/2021 4:42 PM KERRICK KLEANER OPERATOR) Anatomical Region Laterality Modality Other Narrative Procedure Note Bronson Smith MD PhD - 04/30/2021 4:42 PM [facility] Patient Name: Colin Evans Procedure Date: 04/30/2021 4:42 PM Date of : 1960 Admit Type: Outpatient Age: 61 Gender: Male Attending MD: Bronson Smith MD,PHD Room: [facility] ENDOSCOPY ROOM 8 Note Status: Finalized [...] The scope was passed under direct vision.The [id number] endoscope was introduced through the anus and [...] Most Recently Relevant to Health Maintenance Insurance [facility] [employer] [facility] Advance Directives For more information, please contact: [phone] * Full Code (Latest Code Status on File) Date Activated Date Inactivated Comments 04/30/2021 4:18 PM 04/30/2021 9:51 PM Care Teams Dolphin Trainer Relationship Specialty Start Date End Date Jack Lima DO PCP - General Internal Medicine 03/27/24
[2024-10-29 20:19] LABS: Alanine Aminotransferase 17 U/L (6-50); Alkaline Phosphatase 95 U/L (38-126); Anion Gap 6 mmol/L (4-12); Aspartate Amino Transferase 30 U/L (17-59); Bilirubin,Total 0.6 mg/dL (0.2-1.3); Blood Urea Nitrogen 9 mg/dL (9-20); Calcium 9.2 mg/dL (8.4-10.2); Carbon Dioxide 31 mmol/L (22-30); Chloride 97 mmol/L (98-107); Estimated Glomerular Filt Rate > 60; Glucose 95 mg/dL (65-110); Potassium 4.4 mmol/L (3.4-5.0); Sodium 134 mmol/L (137-145); Total Protein 7.2 g/dL (6.3-8.2)
[2024-10-29 20:44] LABS: Basophils Absolute Auto 0.1 K/mm3 (0.0-0.1); Eosinophils Absolute Auto 0.1 K/mm3 (0-0.3); Eosinophils Percent Auto 2.4 % (0-4.4); Hematocrit 44.1 % (42.0-52.0); Hemoglobin 14.4 g/dL (14.0-18.0); Immature Granulocyte Absolute 0.01 K/mm3 (0.00-0.031); Immature Granulocyte Percent A 0.2 % (0-0.5); Lymphocytes Percent Auto 12.2 % (18.3-44.2); Mean Corpuscular HGB Conc 32.7 g/dl (32-36); Mean Corpuscular Hemoglobin 31.4 pg (26-34); Mean Corpuscular Volume 96.3 fl (80-100); Mean Platelet Volume 12.4 fl (7.4-10.4); Monocytes Absolute Auto 0.7 K/mm3 (0.1-0.6); Monocytes Percent Auto 16.4 % (2.6-8.5); Neutrophils Absolute Auto 2.7 K/mm3 (1.3-6.7); Neutrophils Percent Auto 66.8 % (45.5-73.1); Platelet Count Result 192 k/mm3 (150-375); Red Blood Count 4.58 M/mm3 (4.6-6.20); Red Cell Distribution Width 12.6 % (11.5-14.5); White Blood Count 4.1 K/mm3 (4.5-10.0)
[2024-10-29 20:46] LABS: Prostate Specific Antigen 0.5 ng/mL (< OR = 4.0)
== END 2024-10-29 15:49 | disposition home or self-care (01) ==
LOC: ANHGOSHLAB 15:50
PROVIDERS: PCP Internal Medicine; Visit Provider Internal Medicine
DX: D72.819 Decreased white blood cell count, unspecified (principal); E87.1 Hypo-osmolality and hyponatremia; E87.5 Hyperkalemia; Z12.5 Encounter for screening for malignant neoplasm of prostate
CPT/HCPCS: 36415; 80053; 84153; 85025; G0103

== ENCOUNTER 2025-02-04 15:10 | Outpatient (CLI) | payer OTHER, SELFPAY ==
--- NOTE | ~2025-02-04 | DEXA_ITS ---
Bone Density Report Name: LISA TANNER Age: 65 Sex: Male Ethnicity: White Date of : 1960 Indication: height loss; Referring Provider: RODOLFO BRYAN Study: Bone densitometry was performed. Exam Date: February 04, 2025 Accession number: [id number] Bone Density: Region BMD T-score Z-score Classification AP Spine(L1-L4) 0.688 -3.7 -2.9 Osteoporosis Femoral Neck (Left) 0.442 -3.6 -2.6 Osteoporosis Total Hip (Left) 0.582 -3.0 -2.5 Osteoporosis Femoral Neck (Right) 0.457 -3.5 -2.5 Osteoporosis Total Hip (Right) 0.601 -2.9 -2.4 Osteoporosis Total Hip Mean 0.591 -3.0 -2.5 Osteoporosis World Health Organization criteria for BMD impression classify patients as: Normal (T-score at or above -1.0), Osteopenia (T-score between -1.0 and -2.5), or Osteoporosis (T-score at or below -2.5). 10-year Fracture Risk: FRAX not reported because: Some T-score for Spine Total or Hip Total or Femoral Neck at or below -2.5 Clinical Information Provided by Patient: Smokes Patient maximum height was 75 No regular weight bearing exercise Drinks caffeinated beverages Impression: The patient has osteoporosis, based on the Total Spine T-score. The patient has risk factors, including: smoking. Discussion: HIGH RISK OF FRACTURE. BONE DENSITY IS UNDESIRABLY LOW AT ONE OR MORE SKELETAL SITES, CONSISTENT WITH OSTEOPOROSIS. ALSO, BONE DENSITY IS LOWER THAN EXPECTED FOR AGE, SEX AND RACE AT ONE OR MORE SKELETAL SITES; RECOMMEND A DILIGENT SEARCH FOR SECONDARY CAUSES OF BONE LOSS. This patient's lowest T-score meets the World Health Organization's (WHO) criteria for osteoporosis at one or more sites (T-score -2.5 or below). In untreated patients, the risk of osteoporotic fracture increases approximately two-fold for each 1.0 SD decrease in T-score. Low bone density is not the only risk factor for fracture; also consider factors such as patient's age, frailty or poor health, risk of falling, risk of injury, previous osteoporotic fracture, family history of osteoporosis, cigarette smoking, low body weight, etc. Not everyone with low bone mineral density has osteoporosis; osteomalacia and other metabolic bone disorders should also be considered. Patients who have osteoporosis should be evaluated for specific diseases and conditions (secondary causes) that may cause or contribute to bone loss. The National Osteoporosis Foundation (NOF) recommends pharmacologic intervention for men with BMD at this level (a T-score of -2.5 or below). Also, this patient's bone mineral density is below the range considered normal for healthy age-, sex and race-matched controls at least one site (Z-score -2.0 or below). This warrants careful evaluation for diseases and conditions that may contribute to accelerated bone loss. The patient should follow a healthful lifestyle (good nutrition with adequate calcium and vitamin D, and appropriate weight-bearing exercise). Follow-Up: Consider repeating this study in 2 years to reassess this patient's status, or sooner if there is some new clinical indication. Reported by: SUNDEEP on 02/04/2025 3:50:00 PM. Reviewed, dictated and finalized at location A.
--- OUTSIDE RECORDS SUMMARY | 2025-02-04 16:31 | XMS_ITS | Patient Health Record ---
Author Organization [facility] Address [address] [place] [address] Care Team Providers Care Palliative Nurse Name Role Phone Sage Boland Primary Care Provider Reason For Referral No Information Immunizations Vaccine Route Administration Date Status Comme nts COVID-19 Moderna 1ST IM Intramuscular 07/02/2020 Administered COVID-19 Moderna 2nd IM Intramuscular 07/30/2020 Administered EUA given. Jackie ent tolerated well. Plan Of Treatment No Information
--- OUTSIDE RECORDS SUMMARY | 2025-02-04 16:32 | XMS_ITS | Clinical Summary ---
Author Organization [facility], formerly [facility] Address [address] [place] [address] Care Team Providers Care Ship Unloader Name Role Phone Jack Lima DO Primary Care Provider +1- [phone] Allergies No known active allergies Medications cyanocobalamin [...] (100 mg total) by mouth daily Active albuterol HFA (ProAir HFA) 90 mcg/actuation inhaler Inhale 2 puffs 4 (four) times a day as needed for wheezing or shortness of breath 8.5 g 5 4 Active umeclidinium-vi lanteroL (ANORO ELLIPTA) 62.5-25 mcg/actuation blister with device Inhale 1 puff daily 1 each 6 5 Active umeclidinium-vi lanteroL (ANORO ELLIPTA) 62.5-25 mcg/actuation blister with device Inhale 1 puff daily 1 each 6 01/09/20 Discontinu ed(Reorder ) Active Problems Problem Noted Date Diagnosed Date Indeterminate pulmonary nodules 01/13/2025 Dyspnea on exertion 03/27/2024 Chronic obstructive pulmonary disease 03/27/2024 Pectus excavatum 03/27/2024 Tobacco use disorder 03/27/2024 Diverticulitis of colon 11/20/2015 Resolved Problems Problem Noted Date Diagnosed Date Resolved Date DULCE (obstructive sleep apnea) 03/27/2024 01/13/2025 Encounters Date Type Department Care Team Description 01/08/2025 2:30 PM CDT Office Visit [facility] Medicine Pulmonary [address] [facility] Advanced Medicine 8th [place] [address] [place] [address] Skyler Sanderson MD Chronic obstructive pulmonary disease, unspecified COPD type (HCC) (Primary Dx); Tobacco use disorder; Indeterminate pulmonary nodules 01/08/2025 1:30 PM CDT - 01/08/2025 11:59 PM CDT Hospital Encounter [facility] Medicine Pulmonary [address] [facility] [address] [place] [address] Chronic obstructive pulmonary disease, unspecified COPD type (HCC) Discharge Disposition: Discharge to home or self care 01/08/2025 12:14 PM CDT - 01/08/2025 11:59 PM CDT Hospital Encounter [facility] [address] [place] [address] Lung nodule Discharge Disposition: Discharge to home or self care from Last 3 Months Immunizations Immunization Administration Dates Next Due Influenza, Trivalent, Cell C ulture-based MDCK, Preservative Free, Antibiotic Free, Intramuscular 03/27/2024 Pneumococcal Conjugate Pcv20 03/27/2024 Surgical History Surgery Date Site/Laterality Comments COLECTOMY 05/22/2013 - 05/21/2014 Medical History Medical History Date Comments COPD (chronic obstructive pulmonary disease) HTN (hypertension) Diverticulitis DULCE (obstructive sleep apnea) [...] Cessation:Ready to Q uit: Yes; Counseling Given: Yes AUDIT-C Answer Date Recorded Q1: How often do you have a drink containing alc ohol? 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 Not on file Not on file Obstetrics History Last Filed Vital Signs Vital Sign Reading Time Taken Comments Blood Pressure 153/96 01/08/2025 2:02 PM CDT Pulse 85 01/08/2025 2:02 PM CDT Temperature 36.4 C (97.5 F) 01/08/2025 2:02 PM CDT Respiratory Rate 18 01/08/2025 2:02 PM CDT Oxygen Saturation 95% 01/08/2025 2:02 PM CDT Inhaled Oxygen Concentration - - Weight 69.4 kg (153 lb) 01/08/2025 2:02 PM CDT Height 181.6 cm (5' 11.5) 01/08/2025 2:02 PM CD T Body Mass Index 21.04 01/08/2025 2:02 PM CDT Plan of Treatment Health Maintenance Due Date Last Done Comments Depression Screening 1960 Prostate Cancer Screening-PSA 1960 Hepatitis B Screening 1979 Regular Well Visit/Exam 18-64 1979 Zoster Vaccine (1 of 2) 2011 Covid-19 Vaccine (3 - season) 01/20/202503/2021, 07/02/2020 Influenza Vaccine (#1) 2025 03/27/2024 Lung Cancer Screening 01/09/2026 04/04/2024 DTaP/Tdap/Td Vaccine (2 - Td or Tdap) 02/10/2031 Colon Cancer Screening-Colonoscopy 04/30/20312020 Hepatitis C Screening Completed 11/30/2021 Pneumococcal vaccine <65 Completed 03/27/2024 Procedures Procedure Name Priority Date/Time Associated Diagnosis Comments PULMONARY FUNCTION TEST (PFT) Routine 01/08/2025 1:45 PM CDT Chronic obstructive pulmonary disease, unspecified COPD type (HCC) CT CHEST WO CONTRAST Schedule Routine, Read Routine (OP Routine) 01/08/2025 1:[address] Lung nodule CT LUNG CANCER SCREENING Schedule Routine, Read Routine (OP Routine) 04/04/2024 3:44 PM SNOWMAKER Personal history of nicotine dependence HEPATITIS PANEL, ACUTE Routine 11/30/2021 9:11 AM CDT Lymphopenia COLONOSCOPY 04/30/2021 4:42 PM SNOWMAKER from Last 3 Months or Most Recently Relevant to Health Maintenance Results * Pulmonary Function Test - (01/08/2025 1:45 PM CDT) Pathologist [facility] FVC PRE 2.60 L [facility] FVC %PRE PRED 57 % [facility] FEV1 PRE 1.14 L [facility] FEV1 %PRE PRED 33 % [facility] FEV1/FVC PRE 43.9 % [facility] Anatomical Region Laterality Modality PFT 01/08/2025 1:41 PM CDT Narrative 01/10/2025 5:35 PM CDT PFT performed at:->[facility] [place]- Procedure:->Spirometry Pulmonary Function Test Interpretation SPIROMETRY: There is scooping of the expiratory limb of the flow-volume curve, consistent with expiratory airflow obstruction. There is a decrease in expiratory airflow at all lung volumes. The FEV1 to FVC ratio is reduced. Impression: There is a very severe obstructive defect. Compared with most recent study, there has been significant interval worsening of the obstructive ventilatory defect. The attending pulmonary physician certifies a physician presence in the [facility] Suite during the administration of aerosolized bronchodilator. The attending pulmonary physician certifies that he/she has reviewed and interpreted the graphic and numerical data of this pulmonary function study and agrees with the written final report. The lower limit of normal for PaO2 and %HbO2 is age dependent. However, the [facility] Pulmonary Function Laboratory defines hypoxemia as a PaO2 <56 mm Hg or a %HbO2 <89%. Starting on May of 2024 the [facility] Pulmonary Function Laboratory utilizes race neutral GLI Global normative equations. us Skyler Sanderson MD PFT ORDERABLES Final Re sult * CT Chest WO Contrast (01/08/2025 1:25 PM CDT) Anatomical Region Laterality Modality Body N/A Computed Tomogra phy 01/08/2025 2:00 PM CDT Impressions 01/08/2025 2:04 PM CDT 1. Unchanged solid left lower lobe pulmonary nodule. Recommend attention on follow-up examinations. 2. Increased height loss and compression fractures at the T6 and T10 vertebral bodies without significant central canal stenosis at these levels Dictated by: Armando Bowman MD The radiology attending physician has personally reviewed this study, and had reviewed and/or edited this written report and agrees with it. Electronically signed by: Sunita Roe M.D. Narrative 01/08/2025 2:04 PM CDT EXAMINATION: Computed tomography of the chest without intravenous contrast HISTORY: Lung nodule TECHNIQUE: Transaxial computed tomographic images of the chest were obtained without intravenous contrast according to the standard protocol. COMPARISON: CT chest 07/17/2024 FINDINGS: Severe apical predominant centrilobular emphysema. Bullous changes noted in the left lung apex. Unchanged solid left lower lobe pulmonary nodule measuring 1.1 x 0.7 cm (series 3 image 105). No additional pulmonary nodules identified. No focal consolidation, pleural effusion or pneumothorax. There is no supraclavicular, mediastinal, or axillary lymphadenopathy. Heart size is normal. There is no pericardial effusion. There is calcified coronary artery atherosclerosis. Unchanged findings of pectus excavatum. Increased height loss of the T6 vertebral body. Slight increased height loss at the T10 vertebral body. No other new fractures otherwise. No significant vascular abnormality. us Skyler Sanderson MD IMG CT PROCEDURES Final Result * CT Lung Cancer Screening (04/04/2024 3:44 PM SNOWMAKER) Anatomical Region Laterality Modality Chest N/A Computed Tomogra phy 04/05/2024 11:1 1 AM SNOWMAKER Impressions 04/05/2024 11:11 AM SNOWMAKER 1. LungRADS Category Suspicious - 4A. Recommend Low dose CT of chest in 3 months vs. PET/CT. LungRADS Categories: 1 - Negative (no nodules, or only benign calcified or fat-containing nodules) 2 - Benign Appearance or Behavior (nodules with very low likelihood of becoming a clinically active cancer due to size or lack of growth) 3 - Probably Benign (probably benign findings-short term follow up suggested; includes nodules with a low likelihood of becoming a clinically active cancer) 4A,4B,4X - Suspicious (category 3 or 4 nodules with findings for which additional diagnostic testing and/or tissue sampling is recommended) S - Other (clinically significant or potentially clinically significant findings (non-lung cancer) C - Prior Lung Cancer (modifier for patients with a prior diagnosis of lung cancer who return to screening) Electronically signed by: Anthony Horn M.D. Narrative 04/05/2024 11:11 AM SNOWMAKER EXAMINATION: Lung cancer screening CT of the Chest without intravenous contrast HISTORY: Lung Cancer Screening TECHNIQUE: Low radiation dose chest protocol. No intravenous contrast. Reconstructed slice width 1.[address] Dose Index 0.61 mGy. Dose-length product 26.6 mGy-cm. COMPARISON: None FINDINGS: Lung nodules or findings of lung cancer: There is a 1.2 x 0.6 cm left lower lobe solid pulmonary nodule along the major fissure. Smoking related lung disease: Severe apical predominant centrilobular emphysema. Bullous changes in the left lung apex. Other findings: Pectus excavatum. us Skyler Sanderson MD IMG CT PROCEDURES Final Result * Hepatitis panel, acute (11/30/2021 9:11 AM CDT) Hep A IgM Nonreactive Nonreactive [facility] Comment: Interpretive Data: If Hep A IgM Ab is reported as Equivocal, a new sample should be drawn in two weeks for testing. Current interpretive data was last revised on 19. Hep B core IgM Nonreactive Nonreactive [facility] Comment: Interpretive Data If HepB Core IgM Ab is reported as Equivocal, a new sample should be drawn in two weeks for testing. Current interpretive data was last revised on 19. Hep C Ab Nonreactive Nonreactive [facility] Comment:Antibodies to HCV no t detected. Does NOT exclude the possibility of recent exposure to HCV. HepBsAg Nonreactive Nonreactive [facility] Blood 11/30/2021 9:11 AM CDT 11/30/2021 11:21 AM CDT us Sharda Vilchis MD LAB MICROBIOLOGY - GENERAL O RDERABLES Edited Result - Final [facility] Department [place] [address] * COLONOSCOPY (04/30/2021 4:42 PM SNOWMAKER) Anatomical Region Laterality Modality Other Narrative Procedure Note Bronson Smith MD PhD - 04/30/2021 4:42 PM [facility] Patient Name: Colin Evans Procedure Date: 04/30/2021 4:42 PM Date of : 1960 Admit Type: Outpatient Age: 61 Gender: Male Attending MD: Bronson Smith MD,PHD Room: [facility] ENDOSCOPY ROOM 8 Note Status: Finalized [...] The scope was passed under direct vision.The [id number] endoscope was introduced through the anus and [...] On: 04/30/2021 4:42 PM Recognized by the [employer] [employer] for promoting quality in endoscopy Bronson Smith MD PhD ENDOSCOPY PROCEDURES F inal Result from Last 3 Months or Most Recently Relevant to Health Maintenance Insurance [facility] ACCESS CHOICE [facility] Advance Directives For more information, please contact: [phone] * Full Code (Latest Code Status on File) Date Activated Date Inactivated Comments 04/30/2021 4:18 PM 04/30/2021 9:51 PM Care Teams Ship Unloader Relationship Specialty Start Date End Date Jack Lima DO PCP - General Internal Medicine 03/27/24
== END 2025-02-04 15:11 | disposition home or self-care (01) ==
PROVIDERS: PCP Internal Medicine; Visit Provider Internal Medicine
DX: M81.0 Age-related osteoporosis without current pathological fracture (principal)
CPT/HCPCS: 77080

== ENCOUNTER 2025-02-17 15:16 | Outpatient (CLI) | payer OTHER, SELFPAY ==
--- OUTSIDE RECORDS SUMMARY | 2025-02-17 16:07 | XMS_ITS | Clinical Summary ---
Author Organization [facility] Address [address] [place] [address] Care Team Providers Care Chrome Cleaner Name Role Phone Jack Lima DO Primary Care Provider +1- [phone] Allergies No known active allergies Medications cyanocobalamin [...] puff daily 1 each 6 5 Active Active Problems Problem Noted Date Diagnosed Date Indeterminate pulmonary nodules 01/13/2025 Dyspnea on exertion 03/27/2024 Chronic obstructive pulmonary disease 03/27/2024 Pectus excavatum 03/27/2024 Tobacco use disorder 03/27/2024 Diverticulitis of colon 11/20/2015 Resolved Problems Problem Noted Date Diagnosed Date Resolved Date DULCE (obstructive sleep apnea) 03/27/2024 01/13/2025 Encounters Date Type Department Care Team Description 01/08/2025 2:30 PM CDT Office Visit [facility] Medicine Pulmonary [address] [facility] Advanced Medicine 8th [place] [address] [place] [address] Skyler Sanderson MD Chronic obstructive pulmonary disease, unspecified COPD type (HCC) (Primary Dx); Tobacco use disorder; Indeterminate pulmonary nodules 01/08/2025 1:30 PM CDT - 01/08/2025 11:59 PM CDT Hospital Encounter [facility] Medicine Pulmonary [address] [facility] [address] [place] [address] Chronic obstructive pulmonary disease, unspecified COPD type (HCC) Discharge Disposition: Discharge to home or self care 01/08/2025 12:14 PM CDT - 01/08/2025 11:59 PM CDT Hospital Encounter [facility] [address] [place] [address] Lung nodule Discharge Disposition: Discharge to home [...] on file Legal Sex Male 8:21 AM PREFITTER Gender Identity Not on file Sexual Orientation Not on file 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14 L [facility] FEV1 %PRE PRED 33 % [facility] FEV1/FVC PRE 43.9 % [facility] Anatomical Region Laterality Modality PFT 01/08/2025 1:41 PM CDT Narrative 01/10/2025 5:35 PM CDT PFT performed at:->[facility] Adult PFT Lab- [id number] Procedure:->Spirometry Pulmonary Function [...] and %HbO2 is age dependent. However, the [facility] Pulmonary Function Laboratory defines hypoxemia as a PaO2 <56 mm Hg or a %HbO2 <89%. Starting on May of 2024 the [facility] Pulmonary Function Laboratory utilizes race neutral [...] new fractures otherwise. No significant vascular abnormality. Skyler Sanderson MD IMG CT PROCEDURES Final Result * CT Lung Cancer Screening (04/04/2024 3:44 PM PREFITTER) Anatomical Region Laterality Modality Chest N/A Computed Tomogra phy 04/05/2024 11:1 1 AM PREFITTER Impressions 04/05/2024 11:11 AM PREFITTER 1. LungRADS Category Suspicious - 4A. Recommend [...] Anthony Horn M.D. Narrative 04/05/2024 11:11 AM PREFITTER EXAMINATION: Lung cancer screening CT of the [...] left lung apex. Other findings: Pectus excavatum. Skyler Sanderson MD [facility] CT PROCEDURES Final Result * Hepatitis panel, acute (11/30/2021 9:11 AM CDT) Hep A IgM Nonreactive Nonreactive [facility] Comment: Interpretive Data: If Hep A IgM Ab is reported as Equivocal, a new sample should be drawn in two weeks for testing. Current interpretive data was last revised on 19. Hep B core IgM Nonreactive Nonreactive [facility] Comment: Interpretive Data If HepB Core IgM Ab is reported as Equivocal, a new sample should be drawn in two weeks for testing. Current interpretive data was last revised on 19. Hep C Ab Nonreactive Nonreactive [facility] Comment:Antibodies to HCV no t detected. Does NOT exclude the possibility of recent exposure to HCV. HepBsAg Nonreactive Nonreactive [facility] Blood 11/30/2021 9:11 AM CDT 11/30/2021 11:21 AM CDT us Sharda Vilchis MD LAB MICROBIOLOGY - GENERAL O RDERABLES Edited Result - Final [facility] Department [place] [address] * COLONOSCOPY (04/30/2021 4:42 PM PREFITTER) Anatomical Region Laterality Modality Other Narrative Procedure Note Bronson Smith MD PhD - 04/30/2021 4:42 PM [facility] Patient Name: Colin Evans Procedure Date: 04/30/2021 4:42 PM Date of : 1960 Admit Type: Outpatient Age: 61 Gender: Male Attending MD: Bronson Smith MD,PHD Room: [facility] ENDOSCOPY ROOM 8 Note Status: Finalized Procedure: [...] The scope was passed under direct vision.The [id number] endoscope was introduced through the anus and [...] On: 04/30/2021 4:42 PM Recognized by the [place] [employer] for promoting quality in endoscopy Bronson Smith MD PhD ENDOSCOPY PROCEDURES F inal Result from Last 3 Months or Most Recently Relevant to Health Maintenance Insurance [facility] Advance Directives For more information, please contact: [phone] * Full Code (Latest Code Status on File) Date Activated Date Inactivated Comments 04/30/2021 4:18 PM 04/30/2021 9:51 PM Care Teams Chrome Cleaner Relationship Specialty Start Date End Date Jack Lima DO PCP - General Internal Medicine 03/27/24
--- OUTSIDE RECORDS SUMMARY | 2025-02-17 16:07 | XMS_ITS | Patient Health Record ---
Author Organization [facility] Address [address] [place] [address] Care Team Providers Care Immunohematologist Name Role Phone Sage Boland Primary Care Provider Reason For Referral No Information Immunizations Vaccine Route Administration Date Status Comme nts COVID-19 Moderna 1ST IM Intramuscular 07/02/2020 Administered COVID-19 Moderna 2nd IM Intramuscular 07/30/2020 Administered EUA given. Jackie ent tolerated well. Plan Of Treatment No Information
[2025-02-17 18:56] LABS: Parathyroid Intact 55.6 pg/mL (14.5-75.2)
[2025-02-21 10:08] LABS: Free Testosterone (Direct) 3.3 pg/mL (6.6-18.1)
== END 2025-02-17 15:17 | disposition home or self-care (01) ==
LOC: ANHGOSHLAB 15:17
PROVIDERS: PCP Internal Medicine; Visit Provider Internal Medicine
DX: M81.0 Age-related osteoporosis without current pathological fracture (principal); M48.50XA Collapsed vertebra, not elsewhere classified, site unspecified, initial encounter for fracture
CPT/HCPCS: 36415; 82306; 83970; 84402; 84403

== ENCOUNTER 2025-05-07 08:45 | Outpatient (CLI) | payer OTHER, SELFPAY ==
--- NOTE | 2025-05-07 | CONSULT_PTH ---
PATIENT: Colin Evans Jr. LOC: ANHGOSHLAB #:[id number] AGE/SX: 65/M ROOM: RE05/07/[address]: Jack Lima DO : 1960 BED: DIS: 05/07/2025 SPEC #: [id number] RECD: 05/07/25 22:17 STATUS: TAMIKA REQ #: [id number] JUNITO: 05/07/25 00:[address]: Jack Lima DEPT: [facility] Consult RECD BY: Swetha Jimenez MLT, ([facility]) Tissues: A - Peripheral Smear Procedures: Hematology Consult
--- OUTSIDE RECORDS SUMMARY | 2025-05-07 09:13 | XMS_ITS | Clinical Summary ---
Author Organization [facility] Address [address] [place] [address] Care Team Providers Care Community Placement Worker Name Role Phone Jack Lima DO Primary Care Provider [phone] Nohemy Vizcarra MD PhD Unavailable [phone] Skyler Sanderson MD Unavailable [phone] Allergies No known active allergies Medications cyanocobalamin [...] puff daily 1 each 6 5 Active loratadine (Claritin) 10 mg tablet Take 1 tablet (10 mg total) by mouth 3 Active alendronate (FOSAMAX) 70 mg tablet Take 1 tablet (70 mg total) by mouth once a week 5 Active ergocalciferol (VITAMIN D) 50,000 unit capsule Take 1 capsule (50,000 Units total) by mouth once a week Active Active Problems Problem Noted Date Diagnosed Date Indeterminate pulmonary nodules 01/13/2025 Dyspnea on exertion 03/27/2024 Chronic obstructive pulmonary disease 03/27/2024 Pectus excavatum 03/27/2024 Tobacco use disorder 03/27/2024 Diverticulitis of colon 11/20/2015 Resolved Problems Problem Noted Date Diagnosed Date Resolved Date Abnormal CBC 03/12/2025 03/12/2025 Elevated blood pressure reading 03/12/2025 03/12/2025 Leukopenia 03/12/2025 03/12/2025 Atypical chest pain 03/12/2025 03/12/20 Musculoskeletal chest pain 03/12/2025 1 COPD (chronic obstructive pulmonary disease) 03/12/2025 DULCE (obstructive sleep apnea) 03/27/2024 01/13/2025 Encounters Date Type Department Care Team Description 03/12/2025 1:30 PM CDT Office Visit [facility] Medicine Pulmonary [address] [place] [address] [place] [address] Fabiola Arroyo NP Chronic obstructive pulmonary disease, unspecified COPD type (HCC) (Primary Dx); Personal history of nicotine dependence; Indeterminate pulmonary nodules; Hypertension, essential; Seasonal allergies; Immunization counseling; DULCE (obstructive sleep apnea) 03/12/2025 1:00 PM CDT - 03/12/2025 11:59 PM CDT Hospital Encounter [facility] Medicine Pulmonary [address] [place] [address] Chronic obstructive pulmonary disease, unspecified COPD type (HCC) Discharge Disposition: Discharge to home or self care from Last 3 Months Immunizations Immunization Administration Dates Next Due Influenza, Trivalent, Cell C ulture-based MDCK, Preservative Free, Antibiotic Free, Intramuscular 03/12/2025,03/27/2024 Moderna Sars-cov-2 Monovalen t Booster Vaccination (12+ YRS) 07/30/2020,07/02/2020 Pneumococcal Conjugate Pcv20 03/27/2024 Tdap 02/10/2021 Surgical History Surgery Date Site/Laterality Comments COLECTOMY 05/22/2013 - 05/21/2014 Medical History Medical History Date Comments COPD (chronic obstructive pulmonary disease) HTN (hypertension) Diverticulitis DULCE (obstructive sleep apnea) 03/27/2024 Musculoskeletal chest pain 03/12/2025 Abnormal CBC 03/12/2025 Leukopenia 03/12/2025 COPD (chronic obstructive pulmonary disease) Atypical chest pain 03/12/2025 Elevated blood pressure reading 03/12/2025 Family History Medical History Relation Name Comments [...] on file Legal Sex Male 8:21 AM 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 AND 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 Gender Identity Not on file Sexual Orientation Not on file 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 Not on file Not on file Last Filed Vital Signs Vital Sign Reading Time Taken Comments Blood Pressure 147/80 03/12/2025 1:26 PM CDT Pulse 59 03/12/2025 1:26 PM CDT Temperature 36.3 C (97.4 F) 03/12/2025 1:26 PM CDT Respiratory Rate 18 03/12/2025 1:26 PM CDT Oxygen Saturation 96% 03/12/2025 1:26 PM CDT Inhaled Oxygen Concentration - - Weight 69.4 kg (153 lb) 03/12/2025 1:26 PM CDT Height 181.6 cm (5' 11.5) 03/12/2025 1:26 PM CD T Body Mass Index 21.04 03/12/2025 1:26 PM CDT Plan of Treatment Health Maintenance Due Date Last Done Comments Depression Screening 1960 Prostate Cancer Screening-PSA 1960 Hepatitis B Screening 1979 Regular Well Visit/Exam 18-64 1979 Zoster Vaccine (1 of 2) 2011 Covid-19 Vaccine (5 - 2024-2 6 season) 2025 07/30/2020, 07/30/2020, 07/02/2020, Additional history exists Lung Cancer Screening 01/09/2026 04/04/2024 DTaP/Tdap/Td Vaccine (2 - Td or Tdap) 02/10/2031 02/10/2021 Colon Cancer Screening-Colonoscopy 04/30/20312020 Hepatitis C Screening Completed 11/30/2021 Pneumococcal vaccine <65 Completed 03/27/2024 Influenza Vaccine Completed 03/12/2025, 03/27/2024 Procedures Procedure Name Priority Date/Time Associated Diagnosis Comments PULMONARY FUNCTION TEST (PFT) Routine 03/12/2025 1:16 PM CDT Chronic obstructive pulmonary disease, unspecified COPD type (HCC) CT LUNG CANCER SCREENING Schedule Routine, Read Routine (OP Routine) 04/04/2024 3:44 PM F[employer]RIC AND 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 Personal history of nicotine dependence HEPATITIS PANEL, ACUTE Routine 11/30/2021 9:11 AM CDT Lymphopenia COLONOSCOPY 04/30/2021 4:42 PM FABRIC AND 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 from Last 3 Months or Most Recently Relevant to Health Maintenance Results * Pulmonary Function Test - (03/12/2025 1:16 PM CDT) FVC PRE 2.88 L [facility] FVC %PRE PRED 64 % [facility] FEV1 PRE 1.29 L [facility] FEV1 %PRE PRED 37 % [facility] FEV1/FVC PRE 44.8 % [facility] Anatomical Region Laterality Modality PFT 03/12/2025 1:11 PM CDT Narrative 03/13/2025 2:20 PM CDT PFT performed at:->[facility] Adult PFT Lab- [id number] Procedure:->Spirometry Pulmonary Function Test Interpretation SPIROMETRY: There is a decrease in expiratory airflow at all lung volumes. The FEV1 to FVC ratio is reduced. The inspiratory loop is appropriate for the expiratory flow abnormality. Impression: There is a severe obstructive defect. Compared with most recent study, there has been significant interval improvement of the FVC. The attending pulmonary physician certifies a physician [...] PFT ORDERABLES Final Re sult * CT Lung Cancer Screening (04/04/2024 3:44 PM FABRIC AND 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) Anatomical Region Laterality Modality Chest N/A Computed Tomogra phy 04/05/2024 11:1 1 AM FABRIC AND 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 Impressions 04/05/2024 11:11 AM FABRIC AND 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 1. LungRADS Category Suspicious - 4A. Recommend [...] Anthony Horn M.D. Narrative 04/05/2024 11:11 AM FABRIC AND 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 EXAMINATION: Lung cancer screening CT of the [...] CDT) Hep A IgM Nonreactive Nonreactive [facility] Comment: Interpretive Data: If Hep A IgM Ab is reported as Equivocal, a new sample should be drawn in two weeks for testing. Current interpretive data was last revised on 19. Hep B core IgM Nonreactive Nonreactive [facility] Comment: Interpretive Data If HepB Core IgM Ab is reported as Equivocal, a new sample should be drawn in two weeks for testing. Current interpretive data was last revised on 19. Hep C Ab Nonreactive Nonreactive [facility] Comment:Antibodies to HCV no t detected. Does NOT exclude the possibility of recent exposure to HCV. HepBsAg Nonreactive Nonreactive [facility] Blood 11/30/2021 9:11 AM CDT 11/30/2021 11:21 AM CDT Sharda Vilchis MD LAB MICROBIOLOGY - GENERAL O RDERABLES Edited Result - Final [facility] [address] [facility] Department [place] [address] * COLONOSCOPY (04/30/2021 4:42 PM FABRIC AND 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) Anatomical Region Laterality Modality Other Narrative Procedure Note Bronson Smith MD PhD - 04/30/2021 4:42 PM [facility] Patient Name: Colin Evans Procedure Date: 04/30/2021 4:42 PM Date of : 1960 Admit Type: Outpatient Age: 61 Gender: Male Attending MD: Bronson Smith MD,PHD Room: [facility] ENDOSCOPY ROOM 8 Note Status: Finalized Procedure: [...] The scope was passed under direct vision.The [id number] endoscope was introduced through the anus and [...] On: 04/30/2021 4:42 PM Recognized by the [employer] for promoting quality in endoscopy Bronson Smith MD PhD ENDOSCOPY PROCEDURES F inal Result from Last 3 Months or Most Recently Relevant to Health Maintenance Insurance [facility] H[facility]/PPO Address: [facility] [address] [place] [address] [facility] ACCESS CHOICE R [facility] H[facility]/PPO Address: [address] [address] [place] [address] Advance Directives For more information, please contact: [phone] * Full Code (Latest Code Status on File) Date Activated Date Inactivated Comments 04/30/2021 4:18 PM 04/30/2021 9:51 PM Care Teams Community Placement Worker Relationship Specialty Start Date End Date Jack Lima DO PCP - General Internal Medicine 03/27/24 Nohemy Vizcarra MD PhD [address] [place] [address] Referring Physician Neurology 03/12/25 Skyler Sanderson MD [address] [place] [address] Referring Physician Pulmonary Disease 03/12/25
--- OUTSIDE RECORDS SUMMARY | 2025-05-07 09:13 | XMS_ITS | Patient Health Record ---
Author Organization [facility] Address [address] [place] [address] Phone [phone] Care Team Providers Care Table And Desk Finisher Name Role Phone Krystian Sage Primary Care Provider [phone] Reason For Referral No Information Immunizations Status Vaccine Route Administration Date Visit Date Comments Administered COVID-19 Moderna 2nd IM Intramuscular 07/30/2020 EUA given. Patient tolerated well. COVID-19 Moderna 1ST IM Intramuscular 07/02/2020 Social History Sex Observation Social History Observation Description Sex Observation Male Plan Of Treatment No Information
[2025-05-07 19:44] LABS: Hematocrit 46.6 % (42.0-52.0); Hemoglobin 15.1 g/dL (14.0-18.0); Immature Granulocyte Percent A 0.5 % (0-0.5); Lymphocytes Absolute Auto 0.44 K/mm3 (0.9-3.2); Mean Corpuscular HGB Conc 32.4 g/dl (32-36); Mean Corpuscular Hemoglobin 31.7 pg (26-34); Mean Corpuscular Volume 97.9 fl (80-100); Nucleated Red Blood Cells Absolute Auto 0.000 K/mm3 (0.0-0.012); Nucleated Red Blood Cells Perc 0.0 % (0.0-0.2); Platelet Count Result 203 k/mm3 (150-375); Red Blood Count 4.76 M/mm3 (4.6-6.20); White Blood Count 4.4 K/mm3 (4.5-10.0)
[2025-05-07 19:53] LABS: Alanine Aminotransferase 16 U/L (6-50); Albumin Level 4.1 g/dL (3.5-5.1); Alkaline Phosphatase 77 U/L (38-126); Anion Gap 4 mmol/L (4-12); Aspartate Amino Transferase 30 U/L (17-59); Bilirubin,Total 0.8 mg/dL (0.2-1.3); Blood Urea Nitrogen 19 mg/dL (9-20); CRP < 0.5 mg/dL (<1.0); Calcium 9.2 mg/dL (8.4-10.2); Carbon Dioxide 32 mmol/L (22-30); Chloride 98 mmol/L (98-107); Estimated Glomerular Filt Rate > 60; Glucose 100 mg/dL (65-110); Potassium 5.2 mmol/L (3.4-5.0); Sodium 134 mmol/L (137-145); Total Protein 7.2 g/dL (6.3-8.2)
[2025-05-07 19:54] LABS: Free T3 4.07 pg/mL (2.45-5.93); Free T4 Free Thyroxine 1.53 ng/dL (0.78-2.19)
[2025-05-07 20:24] LABS: Thyroid Stimulating Hormone 1.460 uIU/mL (0.465-4.680)
== END 2025-05-07 08:46 | disposition home or self-care (01) ==
LOC: ANHGOSHLAB 08:46
PROVIDERS: PCP Internal Medicine; Visit Provider Internal Medicine
DX: E87.1 Hypo-osmolality and hyponatremia (principal); D72.810 Lymphocytopenia; M81.0 Age-related osteoporosis without current pathological fracture; L98.8 Other specified disorders of the skin and subcutaneous tissue; D72.821 Monocytosis (symptomatic); R63.4 Abnormal weight loss; Z68.20 Body mass index [BMI] 20.0-20.9, adult
CPT/HCPCS: 36415; 80053; 82306; 84439; 84443; 84481; 85025; 85652; 86140